=== PATIENT | male | born 1970 | race Caucasian/White ===

== ENCOUNTER 2017-12-30 02:15 | Emergency (ER) | payer MEDICAID, SELFPAY ==
--- NOTE | 2017-12-30 02:15 | DT_ITS ---
This patient was seen during an EMR downtime December 25, 2017 - January 01, 2018. This patient may have a combination of paper and electronic documentation or all paper documentation. All documentation is viewable within the e-chart portion of [employer] for each patient visit.
== END 2017-12-30 03:10 | disposition home or self-care (01) ==
LOC: ED 12-31 12:04
PROVIDERS: Emergency Provider Emergency Medicine
DX: H61.23 Impacted cerumen, bilateral (principal)
CPT/HCPCS: 99283

== ENCOUNTER 2018-12-02 18:18 | Emergency (ER) | payer MEDICAID, SELFPAY ==
[2018-12-02 18:19] VITALS: BP 126/68; PULSE 72; RESP 15; TEMP 36.9; O2SAT 100; BMI 21.2
--- NOTE | 2018-12-02 18:40 | EKG12_ITS ---
Test Reason : FATIGUE Blood Pressure : / mmHG Vent. Rate : 066 BPM Atrial Rate : 066 BPM P-R Int : 134 ms QRS Dur : 086 ms QT Int : 392 ms P-R-T Axes : 054 075 067 degrees QTc Int : 410 ms Normal sinus rhythm Normal ECG Confirmed by RUBI GARCÍA, THERESA ([id number]), market editor TERESO FORDE ([id number]) on 12/05/2018 1:43:56 PM Referred By: MALIA Confirmed By:THERESA VENEGAS MD
--- NOTE | 2018-12-02 18:42 | ED.DCSUM_ITS ---
- ER Visit Summary Date of Service: 12/02/18 Chief Complaint: Chest pain, fatigue History of Present Illness: The patient is a 48 M who complains of multiple symptoms including chest pain, fatigue and syncope. He states he had right- sided sharp chest pain that started yesterday. It is been continuous. Nothing makes it better or worse. He states he had syncope at a restaurant but he immediately came to and woke back up after it happened. He also planes of pain from the left ear down to the left elbow. He also has dizziness. He has tried nothing to help with this pain. He has been eating and drinking normally. He has no cardiac risk factors except for being a tobacco user. He tried to take 3 aspirin yesterday but it did not help his symptoms. Physical Examination: Vital signs reviewed. HEENT exam unremarkable. Heart is regular rate and rhythm without murmurs. Lungs are clear to auscultation. He has right sided parasternal chest tenderness to palpation. Abdomen is soft and nontender. Extremities reveal no edema. Peripheral pulses are equal. Skin exam normal. Neurologic exam normal. Test Results: EKG is sinus rhythm with rate of 66. No ST changes. Intervals normal. Laboratory studies normal as well. Chest x-ray normal Emergency Department Course and Treatment: Patient has musculoskeletal chest pain. It is reproducible. I see no evidence that would explain any of his fatigue. I will give him the name of the PCP that he needs to follow-up with for more testing. Treatment Plan: [] Disposition: Discharge Impression: Muscular skeletal chest pain, fatigue This note was generated with [employer] dictation software. It may contain incorrect words, spelling, and punctuation that were not noted in review of the chart prior to signing ED Disposition - Plan for ED Patient: Referrals: Care Physician,No Primary [Primary Care Provider] -
[2018-12-02] MEDS: Aspirin 81 MG TAB.CHEW 324 MG PO (19:07)
[2018-12-02 19:10] LABS: Absolute Lymphocyte Count 1.28 X10^3/ul (0.83-4.51); Basophil# 0.04 X10^3/uL; Basophil% 0.7 % (0-1); Eosinophil# 0.19 X10^3/uL; Eosinophils% 3.3 % (0-5); Hematocrit 42.8 % (40-54); Hemoglobin 14.5 g/dl (13.0-16.5); Lymphocyte # 1.28 X10^3/ul (4.0); Mean Corp Hgb Conc 33.9 g/gl (32-36); Mean Corpuscular Hgb 29.8 pg (27.0-32.0); Mean Corpuscular Volume 87.9 fL (80-94); Mean Platelet Vol. 9.4 fl (6.2-12.0); Monocyte# 0.36 X10^3/uL; Monocyte% 6.2 % (0-10); Neutrophil # 3.95 X10^3/uL (2.7-7.7); Neutrophil % 67.6 % (47-70); Platelet Count 276 K/mm3 (150-450); RBC Distribution Width CV 13.2 % (11.6-14.6); Red Blood Count 4.87 M/mm3 (4.6-6.2); White Blood Count 5.8 K/mm3 (4.4-11.0)
--- NOTE | 2018-12-02 19:10 | RAD_ITS ---
STUDY: X-RAY CHEST REASON FOR EXAM: Male, 48 years old. Fatigue. Chest pain. TECHNIQUE: Single AP portable view of the chest. COMPARISON: None. FINDINGS: The lungs are clear and expanded. There is no demonstrated pleural abnormality. Normal size heart. Normal mediastinum and pennie. Normal visualized pulmonary arteries. Normal visualized aortic arch and descending thoracic aorta. Normal visualized thoracic spine. Normal visualized ribs, clavicles, and shoulders. There is no demonstrated abnormality of the visualized soft tissue structures of the upper abdomen. RAD/Chest 1 View (Portable) IMPRESSION: Normal x-ray examination of the chest. Electronically Signed: Scar Benito MD at 19:24 EDT , Service support ,
[2018-12-02 19:11] LABS: POSITIVE COUNT NO; POSITIVE DIFFERENTIAL NO; POSITIVE MORPHOLOGY NO
[2018-12-02 19:39] LABS: Anion Gap 6 (5-15); BUN 25 mg/dL (7-18); BUN/Creat Ratio 26.8 RATIO (10-20); Calcium,Total 8.6 mg/dL (8.5-10.1); Chloride 106 mmol/L (98-107); Creatinine, Serum 0.93 mg/dL (0.70-1.30); EST Glomerular Filtration Rate 92 mL/min (>60); Est Glom Filt Rate - Afr Amer 112 mL/min (>60); Glucose 86 mg/dL (74-106); Potassium 3.9 mmol/L (3.5-5.1); Sodium Level 138 mmol/L (136-145)
--- NOTE | 2018-12-02 19:54 | ED.DEP ---
ED Disposition - Plan for ED Patient: Disposition: Home or Assisted Living Instructions: ED Weakness [facility] Referrals: Care Physician,No Primary [Primary Care Provider] - Rommel Watson MD [NON-STAFF] -
[2018-12-02 20:00] VITALS: BP 113/74; PULSE 68; RESP 15; O2SAT 98
== END 2018-12-02 20:01 | disposition home or self-care (01) ==
PROVIDERS: Emergency Provider Emergency Medicine
DX: R07.89 Other chest pain (principal); R53.83 Other fatigue; Z72.0 Tobacco use
CPT/HCPCS: 71045; 80048; 84484; 85025; 93005; 99285; A4216

== ENCOUNTER 2020-10-25 21:28 | Emergency (ER) | payer SELFPAY ==
[2020-10-25 21:30] VITALS: PULSE 122; RESP 28; TEMP 37.1; O2SAT 94; BMI 21.2
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
--- NOTE | 2020-10-25 21:33 | EKG12_ITS ---
Test Reason : Blood Pressure : / mmHG Vent. Rate : 106 BPM Atrial Rate : 106 BPM P-R Int : 130 ms QRS Dur : 086 ms QT Int : 346 ms P-R-T Axes : 063 081 030 degrees QTc Int : 459 ms Sinus tachycardia Otherwise normal ECG Confirmed by JUAN JOSE GARCÍA, HENRY ([id number]), senior editor SILVIANO BAKER ([id number]) on 10/28/2020 7:53:08 AM Referred By: NATALIE TORREZ Confirmed By:HENRY INGRAM MD
--- NOTE | 2020-10-25 21:33 | CT_ITS ---
History: altered mental status EXAMINATION: CT Head or Brain W/O Contrast Injection .Sagittal and coronal 2-D reformats TECHNIQUE: Multiple axial images were obtained of the head without intravenous contrast. A radiation dose optimization technique was used for this scan. IV Contrast dosage and agent: None 243 COMPARISON: None FINDINGS: BRAIN PARENCHYMA: No intra- or extra-axial hemorrhage. No evidence of acute infarct. No intracranial mass or mass effect. There is preservation of the villegas/white matter interface. Posterior fossa structures are unremarkable. CSF SPACES: Appropriate for age. No hydrocephalus. Basal cisterns are patent. CALVARIUM, SKULL BASE, PARANASAL SINUSES AND MASTOID AIR CELLS: Paranasal sinuses are clear. No discrete lytic or blastic abnormalities. ORBITS: Both globes, extraocular muscles, optic nerves and retrobulbar fat appear unremarkable. ASPECTS Score for Acute Strokes: 10 CT/Brain/Head without Contrast IMPRESSION: Negative Brain CT without contrast. Individualized dose optimization techniques were used for this CT. at 2258 Reported and signed by: Barron Riley MD Electronically Signed: Barron Riley MD at 22:57 EDT Tel , Service support ,
--- NOTE | 2020-10-25 21:34 | CT_ITS ---
History: altered mental status TECHNIQUE: Helically acquired images were obtained of the cervical spine without contrast. 2D reformatted images were reviewed. A radiation dose optimization technique was used for this scan. COMPARISON: None FINDINGS: # of images incl. paperwork: 420 Bilateral mastoid air cell disease is present. Soft tissue occludes both external auditory canals, likely representing cerumen Bony alignment is normal. Disc heights and vertebral body heights are normal. Facets are well aligned. Prevertebral and paraspinal soft tissues are normal. No bones within the cervical spine are fractured. Visualized portion of lung apices are normal. Impression no acute fracture or traumatic subluxation the cervical spine. Bilateral mastoid air cell disease. Soft tissue within both external auditory canals, occluding the external auditory canals, likely representing cerumen.: Normal cervical spine CT. Individualized dose optimization techniques were used for this CT. at 2300 Reported and signed by: Barron Riley MD Electronically Signed: Barron Riley MD at 22:58 EDT Tel , Service support , CT/Spine Cervical without Contras
[2020-10-25 21:45] LABS: Bedside Glucose 109 mg/dL (70-110)
[2020-10-25] MEDS: Ziprasidone IM 20 MG/ML VIAL IM (21:48)
[2020-10-25] MEDS: 0.9% Normal Saline 1,000 ML 1000 ML IV (22:17)
[2020-10-25 22:19] VITALS: O2SAT 88
[2020-10-25 22:21] VITALS: O2SAT 95
[2020-10-25 22:22] LABS: Absolute Lymphocyte Count 1.14 X10^3/uL (0.83-4.51); Absolute Neutrophil Count 4.7 X10^3/uL (2.0-7.7); Basophil# 0.05 X10^3/uL; Basophil% 0.8 % (0-1); Eosinophil# 0.12 X10^3/uL; Eosinophils% 1.9 % (0-5); Hematocrit 43.1 % (40-54); Hemoglobin 14.2 g/dL (13.0-16.5); Lymphocyte # 1.14 X10^3/ul (4.0); Lymphocyte % 18.2 % (19-41); Mean Corp Hgb Conc 32.9 g/dL (32-36); Mean Corpuscular Hgb 29.6 pg (27.0-32.0); Mean Platelet Vol. 9.3 fl (6.2-12.0); Monocyte# 0.31 X10^3/uL; Monocyte% 4.9 % (0-10); NRBC Flagged by Analyzer 0 % (0-5); Neutrophil # 4.65 X10^3/uL (2.7-7.7); Platelet Count 262 K/mm3 (150-450); RBC Distribution Width CV 13.2 % (11.6-14.6); RBC Distribution Width SD 43.1 fl (35.1-43.9); Red Blood Count 4.79 M/mm3 (4.6-6.2); White Blood Count 6.3 K/mm3 (4.4-11.0)
--- NOTE | 2020-10-25 22:29 | RAD_ITS ---
INDICATION: altered mental status EXAMINATION/TECHNIQUE: X-RAY - XR Chest 1 View COMPARISON: None. FINDINGS: The lungs are clear. The cardiomediastinal silhouette is unremarkable. No pleural effusion or pneumothorax. No acute osseous abnormalities. RAD/Chest 1 View (Portable) IMPRESSION: No acute radiographic abnormalities. Electronically Signed: Parviz Hodge MD at 22:58 EDT Tel , Service support ,
[2020-10-25 22:48] LABS: AST(SGOT) 28 U/L (15-37); Alanine Aminotransfer ALT/SGPT 32 U/L (16-61); Alkaline Phosphatase 82 U/L (45-117); Anion Gap 12 (5-15); BUN 17 mg/dL (7-18); BUN/Creat Ratio 17.1 RATIO (10-20); Calcium,Total 8.5 mg/dL (8.5-10.1); Chloride 110 mmol/L (98-107); Creatinine, Serum 0.99 mg/dL (0.70-1.30); EST Glomerular Filtration Rate 85 mL/min (>60); Est Glom Filt Rate - Afr Amer 103 mL/min (>60); Estimated Creatinine Clearance 69.49 ml/min; Globulin 3.9 g/dL (2.2-4.2); Glucose 90 mg/dL (74-106); Potassium 3.9 mmol/L (3.5-5.1); Protein, Total 7.9 g/dL (6.4-8.2); Sodium Level 144 mmol/L (136-145)
[2020-10-25 23:00] VITALS: BP 100/61; PULSE 94; RESP 14; O2SAT 95
--- NOTE | 2020-10-25 23:39 | ED.DEP ---
ED Disposition - Plan for ED Patient: Disposition: Home or Assisted Living Diagnosis: Alcohol intoxication Instructions: ED Alcohol Intoxication Referrals: Cassandra Phillips [NON-STAFF] - As Needed
[2020-10-26] VITALS (9 sets, daily range): BP systolic 88–124; BP diastolic 59–70; PULSE 67–98; RESP 13–16; O2SAT 96–99
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
== END 2020-10-26 09:11 | disposition home or self-care (01) ==
LOC: ED 10-26 04:14
PROVIDERS: Student in an Organized Health Care Education/Training Program; Emergency Provider Emergency Medicine
DX: F10.129 Alcohol abuse with intoxication, unspecified (principal); R45.1 Restlessness and agitation; Z87.891 Personal history of nicotine dependence
CPT/HCPCS: 70450; 71045; 72125; 80053; 82077; 82140; 82962; 84484; 85025; 93005; 96360; 96361; 96372; 99285; J7030; A4216; J3486

== ENCOUNTER 2021-01-29 23:37 | Emergency (ER) | payer SELFPAY ==
[2021-01-29 23:39] VITALS: BP 147/93; PULSE 98; RESP 22; TEMP 35.7; O2SAT 86; BMI 20.9
[2021-01-30] VITALS (8 sets, daily range): BP systolic 105–121; BP diastolic 68–80; PULSE 72–91; RESP 14–22; O2SAT 94–99
[2021-01-30] MEDS: LORazepam 2 MG/ML Syringe 1 MG IV
[2021-01-30] MEDS: Ondansetron 4 MG/2 ML Vial IV
[2021-01-30 00:19] LABS: Absolute Lymphocyte Count 2.26 X10^3/uL (0.83-4.51); Absolute Neutrophil Count 4.5 X10^3/uL (2.0-7.7); Basophil# 0.09 X10^3/uL; Basophil% 1.1 % (0-1); Eosinophil# 0.51 X10^3/uL; Eosinophils% 6.3 % (0-5); Hematocrit 42.5 % (40-54); Hemoglobin 13.8 g/dL (13.0-16.5); Lymphocyte # 2.26 X10^3/ul (0.83-4.51); Lymphocyte % 28.1 % (19-41); Mean Corp Hgb Conc 32.5 g/dL (32-36); Mean Corpuscular Hgb 29.9 pg (27.0-32.0); Mean Corpuscular Volume 92.2 fL (80-94); Mean Platelet Vol. 9.7 fl (6.2-12.0); Monocyte# 0.64 X10^3/uL; NRBC Flagged by Analyzer 0 % (0-5); Neutrophil # 4.49 X10^3/uL (2.7-7.7); Neutrophil % 55.9 % (47-70); Platelet Count 296 K/mm3 (150-450); RBC Distribution Width CV 12.7 % (11.6-14.6); RBC Distribution Width SD 43.1 fl (35.1-43.9); Red Blood Count 4.61 M/mm3 (4.6-6.2)
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
[2021-01-30 00:32] LABS: Anion Gap 9 (5-15); BUN 13 mg/dL (7-18); Calcium,Total 8.4 mg/dL (8.5-10.1); Chloride 110 mmol/L (98-107); EST Glomerular Filtration Rate 85 mL/min (>60); Est Glom Filt Rate - Afr Amer 102 mL/min (>60); Estimated Creatinine Clearance 74.53 ml/min; Glucose 93 mg/dL (74-106); Potassium 3.8 mmol/L (3.5-5.1); Sodium Level 143 mmol/L (136-145)
--- NOTE | 2021-01-30 00:50 | RAD_ITS ---
STUDY: X-RAY CHEST REASON FOR EXAM: Male, 50 years old. Altered mental status, vomiting TECHNIQUE: Single AP portable view of the chest. COMPARISON: 10/25/2020 FINDINGS: The lungs are clear and expanded. There is no demonstrated pleural abnormality. Normal size heart. Normal mediastinum and pennie. Normal visualized pulmonary arteries. Normal visualized aortic arch and descending thoracic aorta. Normal visualized thoracic spine. Normal visualized ribs, clavicles, and shoulders. There is no demonstrated abnormality of the visualized soft tissue structures of the upper abdomen. RAD/Chest 1 View (Portable) IMPRESSION: Normal x-ray examination of the chest. Electronically Signed: Alhaji Butcher DO at 1:27 EDT Tel , Service support ,
[2021-01-30 01:10] LABS: Amphetamine Urine VISTA NEGATIVE (<1000 ng/mL); Barbiturate Urine VISTA NEGATIVE (< 200 ng/mL); Benzodiazepine Urine VISTA NEGATIVE (< 200 ng/mL); Cocaine Urine VISTA NEGATIVE (< 300 ng/mL); Ecstacy Urine VISTA NEGATIVE (< 500 ng/mL); Methadone Urine VISTA NEGATIVE (< 300 ng/mL); PCP Urine VISTA NEGATIVE (< 25 ng/mL); THC Urine VISTA NEGATIVE (< 50 ng/mL); Vista UDS pH Range 5
== END 2021-01-30 08:15 | disposition home or self-care (01) ==
PROVIDERS: Emergency Provider Emergency Medicine
DX: F10.129 Alcohol abuse with intoxication, unspecified (principal); F17.210 Nicotine dependence, cigarettes, uncomplicated
CPT/HCPCS: 71045; 80048; 80307; 82077; 85025; 96374; 96375; 99285; P9612; A4216; J2405

== ENCOUNTER 2021-03-15 01:45 | Emergency (ER) | payer SELFPAY ==
[2021-03-15 01:55] VITALS: BP 133/94; PULSE 82; RESP 18; TEMP 36.3; O2SAT 97; BMI 21.0
[2021-03-15 02:02] VITALS: BP 133/94; PULSE 82; RESP 18; TEMP 36.3; O2SAT 97
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
== END 2021-03-15 02:41 | disposition home or self-care (01) ==
LOC: ED 02:18
PROVIDERS: Emergency Provider Emergency Medicine
DX: S01.85XA Open bite of other part of head, initial encounter (principal); F17.210 Nicotine dependence, cigarettes, uncomplicated; Y04.1XXA Assault by human bite, initial encounter
CPT/HCPCS: 99282

== ENCOUNTER 2021-05-30 20:53 | Emergency (ER) | payer SELFPAY ==
[2021-05-30 20:54] VITALS: BP 151/94; PULSE 108; RESP 18; TEMP 36.3; O2SAT 95; BMI 20.4
[2021-05-30 21:19] LABS: Absolute Lymphocyte Count 1.75 X10^3/uL (0.83-4.51); Absolute Neutrophil Count 6.2 X10^3/uL (2.0-7.7); Basophil# 0.06 X10^3/uL; Basophil% 0.7 % (0-1); Eosinophil# 0.07 X10^3/uL; Eosinophils% 0.8 % (0-5); Hematocrit 41.5 % (40-54); Hemoglobin 13.5 g/dL (13.0-16.5); Lymphocyte # 1.75 X10^3/ul (0.83-4.51); Lymphocyte % 20.2 % (19-41); Mean Corp Hgb Conc 32.5 g/dL (32-36); Mean Corpuscular Hgb 29.5 pg (27.0-32.0); Mean Corpuscular Volume 90.8 fL (80-94); Mean Platelet Vol. 9.6 fl (6.2-12.0); Monocyte# 0.61 X10^3/uL; NRBC Flagged by Analyzer 0 % (0-5); Neutrophil # 6.16 X10^3/uL (2.7-7.7); Neutrophil % 71.1 % (47-70); Platelet Count 272 K/mm3 (150-450); RBC Distribution Width CV 12.9 % (11.6-14.6); RBC Distribution Width SD 43.4 fl (35.1-43.9); Red Blood Count 4.57 M/mm3 (4.6-6.2); White Blood Count 8.7 K/mm3 (4.4-11.0)
[2021-05-30] MEDS: 0.9% Normal Saline 1,000 ML 1000 ML IV (21:24)
[2021-05-30 21:40] LABS: ALB/GLOB Ratio 1.1 RATIO (0.9-2.4); AST(SGOT) 28 U/L (15-37); Alanine Aminotransfer ALT/SGPT 21 U/L (16-61); Albumin, Serum 4.2 g/dL (3.2-5.0); Alkaline Phosphatase 83 U/L (45-117); Anion Gap 15 (5-15); BUN 17 mg/dL (7-18); Calcium,Total 8.4 mg/dL (8.5-10.1); Chloride 110 mmol/L (98-107); Creatinine, Serum 1.06 mg/dL (0.70-1.30); EST Glomerular Filtration Rate 79 mL/min (>60); Est Glom Filt Rate - Afr Amer 95 mL/min (>60); Estimated Creatinine Clearance 68.44 ml/min; Globulin 3.8 g/dL (2.2-4.2); Glucose 113 mg/dL (74-106); Potassium 3.2 mmol/L (3.5-5.1); Sodium Level 140 mmol/L (136-145)
--- NOTE | 2021-05-30 23:11 | EX.ED.DYSGE1 ---
HPI History of Present Illness Chief Complaint: Seizure Informant: EMS Onset/Context/Timing Onset: Today Context: Gradual Onset Timing: Continuous Quality: Combative Location: Generalized Worsened by: Unknown Relieved by: Unknown Narrative Narrative: Patient presents with agitation that began today. EMS states they were called for a seizure. When they arrived, they noted that the patient was having purposeful movements. Patient was combative with EMS. EMS administered 20 mg of Geodon. Patient is sleeping on my evaluation. EMS also noted that the patient had been drinking alcohol earlier today. PFSH PFSH Medical History unable to obtain unable to obtain Home Medications NK 12/02/18 [History Last Taken Unknown] Allergy/AdvReac Type Severity Reaction Status Date / Time No Known Allergies Allergy Verified 10/25/20 21:29 Surgical History unable to obtain unable to obtain Social History Smoking Status: Current every day smoker tobacco type: cigarettes alcohol intake: current ROS ROS ED Review of Systems ROS Unobtainable: due to mental status EXAM Physical Exam Const Vital Signs: 05/30/21 20:54 05/30/21 23:12 05/31/21 00:52 Temperature 97.4 F L Temperature Source Temporal Pulse Rate 108 H 85 81 Respiratory Rate 18 18 15 Blood Pressure 151/94 H 117/45 L 107/77 Blood Pressure Mean 113 69 87 Pulse Ox 95 98 96 Oxygen Delivery Method Room Air Room Air Room Air Positive unkempt General Appearance ED: unkempt and NAD HEENT Reports moist mucous membranes Neck supple and no JVD Chest Wall inspection of chest normal and palpation of chest normal Resp normal respiratory effort and clear to auscultation bilaterally Cardio regular rhythm Rate: tachycardic GI normal to inspection, nondistended, normoactive bowel sounds and non-tender Palpation: soft Neuro oriented x3, CN's II-XII intact bilaterally and no sensory deficits noted Sensorium / Orientation: alert Motor Exam: strength 5/5 throughout Psych mental status grossly normal Appearance: unkempt MDM MDM MDM Narrative Medical decision making narrative: Patient was given IV fluids. CBC was within normal limits. Comprehensive metabolic profile showed a CO2 of 15 and anion gap of 15. Serum alcohol level was elevated at 285 which would account for that. Patient became more awake and alert while here in the emergency department. Patient was able to call for a sober ride to come pick him up and take care of him at home. Patient was advised to stop drinking. Patient was given referral to 180. Patient understood and was agreeable with the plan. All questions were answered. Lab Data Attestation: I reviewed the patient's lab results. Labs: Laboratory Results - last 24 hr 05/30/21 05/30/21 05/30/21 21:00 21:00 21:00 WBC 8.7 RBC 4.57 L Hgb 13.5 Hct 41.5 MCV 90.8 MCH 29.5 MCHC 32.5 RDW Std Deviation 43.4 RDW Coeff of Sade 12.9 Plt Count 272 MPV 9.6 Immature Gran % (Auto) 0.200 Neut % (Auto) 71.1 H Lymph % (Auto) 20.2 Graham % (Auto) 7.0 Eos % (Auto) 0.8 Baso % (Auto) 0.7 Absolute Neuts (auto) 6.2 Absolute Lymphs (auto) 1.75 Nucleated RBC % 0 Sodium 140 Potassium 3.2 L Chloride 110 H Carbon Dioxide 15.0 L Anion Gap 15 BUN 17 Creatinine 1.06 Estim Creat Clear Calc 68.44 Est GFR (MDRD) Af Amer 95 Est GFR (MDRD) Non-Af 79 BUN/Creatinine Ratio 16.0 Glucose 113 H Calcium 8.4 L Total Bilirubin 0.30 AST 28 ALT 21 Alkaline Phosphatase 83 Total Protein 8.0 Albumin 4.2 Globulin 3.8 Albumin/Globulin Ratio 1.1 Ethyl Alcohol 285.0 Discharge Plan Triage Chief Complaint: Seizure ED Provider: Lauro Burnett Dx/Rx/DC Orders Clinical Impression: Alcohol intoxication Instructions: ED Alcohol Intoxication Prescriptions: No Action NK RF: 0 Primary Care Provider: Care Physician,No Primary Referrals: Care Physician,No Primary [Primary Care Provider] - [facility] [STAFF PHYSICIAN] - As soon as possible Disposition Disposition: Home, Self Care
[2021-05-30 23:12] VITALS: BP 117/45; PULSE 85; RESP 18; O2SAT 98
[2021-05-31 00:52] VITALS: BP 107/77; PULSE 81; RESP 15; O2SAT 96
== END 2021-05-31 01:52 | disposition home or self-care (01) ==
PROVIDERS: Emergency Provider Emergency Medicine
DX: F10.129 Alcohol abuse with intoxication, unspecified (principal); F17.210 Nicotine dependence, cigarettes, uncomplicated; Y90.8 Blood alcohol level of 240 mg/100 ml or more
CPT/HCPCS: 80053; 82077; 85025; 96360; 96361; 99285; J7030; A4216

== ENCOUNTER 2022-10-14 16:35 | Emergency (ER) | payer SELFPAY ==
[2022-10-14 16:36] VITALS: BP 135/91; PULSE 94; RESP 18; TEMP 36.9; O2SAT 99; BMI 19.3
--- NOTE | 2022-10-14 16:55 | ED.RN ---
SYDNEE Ann, at bedside to assess pt d/t complaints of arm tingling, chest pain, weakness, blurred vision earlier today.
[2022-10-14 16:56] VITALS: BP 137/90; PULSE 91; RESP 12; O2SAT 100
[2022-10-14 17:00] VITALS: BMI 19.2
--- NOTE | 2022-10-14 17:05 | ED.VIS.CHEST ---
HPI <SYDNEE Del Toro - Last Filed: 10/14/22 20:42> History of Present Illness Chief Complaint: Neuro S/Sx Narrative Narrative: Patient states around 4 PM he was at work at his [employer] job when he started having chest pain and bilateral arm pain. He felt lightheaded like he might fall and pass out. His left arm started to tingle. He started his shift around noon and felt fine and ate before going in. He denies history of health problems and takes no medications. He has not seen a doctor in about 2 years. No cardiac history. Denies smoking, alcohol, or drug use. He does report feeling intermittently hot and cold over the last week. PFSH <SYDNEE Del Toro - Last Filed: 10/14/22 20:42> [facility] Home Medications NK 12/02/18 [History Last Taken Unknown] Allergy/AdvReac Type Severity Reaction Status Date / Time No Known Allergies Allergy Verified 10/14/22 16:36 Social History Smoking Status: Former smoker alcohol intake: current ROS <SYDNEE Del Toro - Last Filed: 10/14/22 20:42> ROS ED ROS Narrative Constitutional: Negative for fever. Eyes: Negative for visual change. ENT: Negative for rhinorrhea. CVS: Positive for chest pain. Negative for palpitations, syncope. Respiratory: Negative for shortness of breath, cough. GI: Negative for abdominal pain, nausea, vomiting, diarrhea, constipation, melena, hematochezia. : Negative for dysuria. Neuro: Negative for headache. Skin: Negative for rash, abscess, or wound. EXAM <SYDNEE Del Toro - Last Filed: 10/14/22 20:42> Physical Exam Narrative Exam Narrative: CONST: Patient sitting in no acute distress. EYES: Normal inspection. ENT: Normal inspection, moist mucous membranes. NECK: Normal inspection. RESP: No respiratory distress, CTAB. CVS: Regular rate and rhythm, no murmur, no gallop. ABD: Soft and nontender, no guarding or rebound, nondistended. SKIN: Color normal, no rash, warm, dry, intact. EXTREMITIES: Normal appearance, no pedal edema. NEURO: Oriented x4. Face symmetric. 5/5 upper and lower extremity strength, no drift, normal [id number] and [id number] bilaterally. PSYCH: Normal affect. Const Vital Signs: 10/14/22 16:36 10/14/22 16:56 10/14/22 17:02 Temperature 98.5 F Temperature Source Temporal Pulse Rate 94 91 Respiratory Rate 18 12 Respiratory Effort Normal Non-Labored Respiratory Pattern Normal Blood Pressure 135/91 H 137/90 H Blood Pressure Mean 105 105 Pulse Ox 99 100 Oxygen Delivery Method Room Air Room Air 10/14/22 17:30 10/14/22 18:00 10/14/22 19:00 Temperature Temperature Source Pulse Rate 84 83 73 Respiratory Rate 14 16 13 Respiratory Effort Respiratory Pattern Blood Pressure 128/85 H 126/82 H 109/75 Blood Pressure Mean 99 96 86 Pulse Ox 99 100 99 Oxygen Delivery Method Room Air Room Air Room Air 10/14/22 19:44 Temperature Temperature Source Pulse Rate 75 Respiratory Rate 18 Respiratory Effort Respiratory Pattern Blood Pressure 117/73 Blood Pressure Mean Pulse Ox 100 Oxygen Delivery Method <Dr. Rivera Velázquez DO - Last Filed: 10/14/22 23:17> Physical Exam Const Vital Signs: 10/14/22 16:36 10/14/22 16:56 10/14/22 17:02 Temperature 98.5 F Temperature Source Temporal Pulse Rate 94 91 Respiratory Rate 18 12 Respiratory Effort Normal Non-Labored Respiratory Pattern Normal Blood Pressure 135/91 H 137/90 H Blood Pressure Mean 105 105 Pulse Ox 99 100 Oxygen Delivery Method Room Air Room Air 10/14/22 17:30 10/14/22 18:00 10/14/22 19:00 Temperature Temperature Source Pulse Rate 84 83 73 Respiratory Rate 14 16 13 Respiratory Effort Respiratory Pattern Blood Pressure 128/85 H 126/82 H 109/75 Blood Pressure Mean 99 96 86 Pulse Ox 99 100 99 Oxygen Delivery Method Room Air Room Air Room Air 10/14/22 19:44 Temperature Temperature Source Pulse Rate 75 Respiratory Rate 18 Respiratory Effort Respiratory Pattern Blood Pressure 117/73 Blood Pressure Mean Pulse Ox 100 Oxygen Delivery Method MDM <SYDNEE Del Toro - Last Filed: 10/14/22 20:42> [facility] MDM Narrative Medical decision making narrative: Patient had chest pressure and bilateral arm pain. [place] lightheaded. He appears uncomfortable but nontoxic. Vital signs are within normal limits. His exam overall is benign. Nurses were concerned for any neurological complaints since he seemed weak when walking in but he has no focal deficits. I do not think his symptoms sound consistent with a stroke. Cardiac work-up was started. EKG is sinus with no ischemic changes. CBC, BMP unremarkable. Troponin is less than 3. D-dimer was elevated at 0.93 so a CTA was obtained but this is negative for PE or acute process. Alcohol level was checked since he had a history of alcohol abuse but is negative. Patient states he is not using any alcohol or drugs currently. After 1 L of IV fluids he said he felt better and was ambulating in the hallway to the bathroom with no symptoms. I feel he can be discharged safely to follow-up with his doctor but should return if symptoms worsen. Differential: ACS, PE, pneumonia, electrolyte abnormality Lab Data Attestation: I reviewed the patient's lab results. Labs: Laboratory Results - last 24 hr 10/14/22 10/14/22 10/14/22 16:49 16:55 16:55 WBC 7.4 RBC 5.12 Hgb 13.6 Hct 43.1 MCV 84.2 MCH 26.6 L MCHC 31.6 L RDW Std Deviation 53.0 H RDW Coeff of Sade 17.1 H Plt Count 306 MPV 10.2 Immature Gran % (Auto) 0.300 Neut % (Auto) 75.4 H Lymph % (Auto) 14.7 L Wilkinson % (Auto) 7.3 Eos % (Auto) 1.5 Baso % (Auto) 0.8 Absolute Neuts (auto) 5.6 Absolute Lymphs (auto) 1.08 Nucleated RBC % 0 D-Dimer Quant (PE/DVT) 0.93 H* Sodium Potassium Chloride Carbon Dioxide Anion Gap BUN Creatinine Estim Creat Clear Calc Est GFR (MDRD) Af Amer Est GFR (MDRD) Non-Af BUN/Creatinine Ratio Glucose Calcium Troponin I High Sens Urine Color Urine Clarity Urine pH Ur Specific [place] Urine Protein Urine Glucose (UA) Urine Ketones Urine Occult Blood Urine Nitrite Urine Bilirubin Urine Urobilinogen Ur Leukocyte Esterase Urine RBC Urine WBC Ur Squamous Epith Cells Urine Bacteria Urine Mucus Ethyl Alcohol POC Glucose 92 10/14/22 10/14/22 10/14/22 16:55 18:00 18:40 WBC RBC Hgb Hct MCV MCH MCHC RDW Std Deviation RDW Coeff of Sdae Plt Count MPV Immature Gran % (Auto) Neut % (Auto) Lymph % (Auto) Wilkinson % (Auto) Eos % (Auto) Baso % (Auto) Absolute Neuts (auto) Absolute Lymphs (auto) Nucleated RBC % D-Dimer Quant (PE/DVT) Sodium 133 L Potassium 4.0 Chloride 102 Carbon Dioxide 24.0 Anion Gap 7 BUN 22 H Creatinine 1.19 Estim Creat Clear Calc 56.83 Est GFR (MDRD) Af Amer 83 Est GFR (MDRD) Non-Af 69 BUN/Creatinine Ratio 18.5 Glucose 100 Calcium 9.3 Troponin I High Sens < 3 L Urine Color Yellow Urine Clarity Clear Urine pH 6.0 Ur Specific [place] 1.010 Urine Protein Negative Urine Glucose (UA) Normal Urine Ketones Negative Urine Occult Blood Negative Urine Nitrite Negative Urine Bilirubin Negative Urine Urobilinogen Normal Ur Leukocyte Esterase 100 H Urine RBC 0 SEEN Urine WBC 0-5 SEEN Ur Squamous Epith Cells 0 SEEN Urine Bacteria 0 SEEN Urine Mucus 0 SEEN Ethyl Alcohol < 3.0 POC Glucose Radiography Diagnostic Testing: Clinical Impression(s) from Imaging Studies Chest X-Ray 10/14/22 17:20 IMPRESSION: Normal x-ray examination of the chest. Electronically Signed: Jimmy Thomson MD at 17:35 EDT , Chest CTA 10/14/22 18:22 IMPRESSION: No acute abnormalities, without a demonstrated pulmonary embolism or arterial dissection. Electronically Signed: Jimmy Thomson MD at 18:45 EDT , ED attending interpretation of chest x-ray shows normal heart size, no acute infiltrate. EKG Initial EKG: Attestation: I personally reviewed and interpreted this EKG as follows: Interpretation: Sinus Rhythm and No Acute Injury Pattern Comments: Normal sinus rhythm at 87 bpm, no ectopy or acute ischemic changes noted Prior EKG tracings: available for review Prior: Unchanged <Dr. Rivera Velázquez, DO - Last Filed: 10/14/22 23:17> [facility] MDM Narrative Medical decision making narrative: Patient had chest pressure and bilateral arm pain. [place] lightheaded. He appears uncomfortable but nontoxic. Vital signs are within normal limits. His exam overall is benign. Nurses were concerned for any neurological complaints since he seemed weak when walking in but he has no focal deficits. I do not think his symptoms sound consistent with a stroke. Cardiac work-up was started. EKG is sinus with no ischemic changes. CBC, BMP unremarkable. Troponin is less than 3. D-dimer was elevated at 0.93 so a CTA was obtained but this is negative for PE or acute process. Alcohol level was checked since he had a history of alcohol abuse but is negative. Patient states he is not using any alcohol or drugs currently. After 1 L of IV fluids he said he felt better and was ambulating in the hallway to the bathroom with no symptoms. I feel he can be discharged safely to follow-up with his doctor but should return if symptoms worsen. Differential: ACS, PE, pneumonia, electrolyte abnormality This patient was seen with a PA/INSURANCE CLAIMS ANALYST Individually assessed they patient including history and physical. I have reviewed everything on the chart that is available and agree with the documentation provided by the PA/INSURANCE CLAIMS ANALYST including discussion about the assessment, treatment plan, discussion, and return precautions. Patient presenting with lightheadedness, chest pressure, bilateral arm pain. Well-appearing nontoxic with normal exam. Patient presents he does not have any neurologic deficits or lateralizing signs or symptoms. Chest pain work-up obtained and is ultimately normal. Chest x-ray my interpretation showed no acute cardiopulmonary process. Radiology interpretation agrees. EKG sinus rhythm with a rate of 87 bpm outside of ischemic change or dysrhythmia. D-dimer was elevated so had a CT of the chest was also negative. Patient was given IV fluids is ambulating without difficulty. At this point he had a negative work-up and actually consistently discharged home. Return precautions were discussed Lab Data Labs: Laboratory Results - last 24 hr 10/14/22 10/14/22 10/14/22 16:49 16:55 16:55 WBC 7.4 RBC 5.12 Hgb 13.6 Hct 43.1 MCV 84.2 MCH 26.6 L MCHC 31.6 L RDW Std Deviation 53.0 H RDW Coeff of Sade 17.1 H Plt Count 306 MPV 10.2 Immature Gran % (Auto) 0.300 Neut % (Auto) 75.4 H Lymph % (Auto) 14.7 L Wilkinson % (Auto) 7.3 Eos % (Auto) 1.5 Baso % (Auto) 0.8 Absolute Neuts (auto) 5.6 Absolute Lymphs (auto) 1.08 Nucleated RBC % 0 D-Dimer Quant (PE/DVT) 0.93 H* Sodium Potassium Chloride Carbon Dioxide Anion Gap BUN Creatinine Estim Creat Clear Calc Est GFR (MDRD) Af Amer Est GFR (MDRD) Non-Af BUN/Creatinine Ratio Glucose Calcium Troponin I High Sens Urine Color Urine Clarity Urine pH Ur Specific [place] Urine Protein Urine Glucose (UA) Urine Ketones Urine Occult Blood Urine Nitrite Urine Bilirubin Urine Urobilinogen Ur Leukocyte Esterase Urine RBC Urine WBC Ur Squamous Epith Cells Urine Bacteria Urine Mucus Ethyl Alcohol POC Glucose 92 10/14/22 10/14/22 10/14/22 16:55 18:00 18:40 WBC RBC Hgb Hct MCV MCH MCHC RDW Std Deviation RDW Coeff of Sade Plt Count MPV Immature Gran % (Auto) Neut % (Auto) Lymph % (Auto) Wilkinson % (Auto) Eos % (Auto) Baso % (Auto) Absolute Neuts (auto) Absolute Lymphs (auto) Nucleated RBC % D-Dimer Quant (PE/DVT) Sodium 133 L Potassium 4.0 Chloride 102 Carbon Dioxide 24.0 Anion Gap 7 BUN 22 H Creatinine 1.19 Estim Creat Clear Calc 56.83 Est GFR (MDRD) Af Amer 83 Est GFR (MDRD) Non-Af 69 BUN/Creatinine Ratio 18.5 Glucose 100 Calcium 9.3 Troponin I High Sens < 3 L Urine Color Yellow Urine Clarity Clear Urine pH 6.0 Ur Specific [place] 1.010 Urine Protein Negative Urine Glucose (UA) Normal Urine Ketones Negative Urine Occult Blood Negative Urine Nitrite Negative Urine Bilirubin Negative Urine Urobilinogen Normal Ur Leukocyte Esterase 100 H Urine RBC 0 SEEN Urine WBC 0-5 SEEN Ur Squamous Epith Cells 0 SEEN Urine Bacteria 0 SEEN Urine Mucus 0 SEEN Ethyl Alcohol < 3.0 POC Glucose Radiography Diagnostic Testing: Clinical Impression(s) from Imaging Studies Chest X-Ray 10/14/22 17:20 IMPRESSION: Normal x-ray examination of the chest. Electronically Signed: Jimmy Thomson MD at 17:35 EDT Reading Location ID and State: [facility] / [place] , Service support , Chest CTA 10/14/22 18:22 IMPRESSION: No acute abnormalities, without a demonstrated pulmonary embolism or arterial dissection. Electronically Signed: Jimmy Thomson MD at 18:45 EDT Reading Location ID and State: [address] [place] [address] , Service support , Discharge Plan Triage Chief Complaint: Neuro S/Sx Other Complaint: Chest Pain Numb/Ting ED Midlevel Provider: Sara Silva ED Provider: Rivera Velázquez Dx/Rx/DC Orders Clinical Impression: Chest pain Instructions: Chest Pain [facility] Ch Prescriptions: No Action NK Primary Care Provider: Care Physician,No Primary Referrals: Cassandra Phillips [Non-Staff] - Care Physician,No Primary [Primary Care Provider] - Activity Restrictions/Additional Instructions: Please call the clinic for follow-up with your primary care doctor. If you develop new or worsening symptoms come back to the ER. Disposition Disposition: Home, Self Care Discharge Date/Time: 10/14/22 19:51
--- NOTE | 2022-10-14 17:20 | EKG12_ITS ---
Test Reason : WEAKNESS/CP Blood Pressure : / mmHG Vent. Rate : 087 BPM Atrial Rate : 087 BPM P-R Int : 112 ms QRS Dur : 090 ms QT Int : 356 ms P-R-T Axes : 056 081 058 degrees QTc Int : 428 ms Normal sinus rhythm Minimal voltage criteria for LVH, may be normal variant ( Sokolow-Bassett ) Borderline ECG Confirmed by JUAN JOSE GARCÍA, HENRY ([id number]), script editor TERESO FORDE ([id number]) on 10/17/2022 2:16:55 PM Referred By: NATALIE/RICH Confirmed By:HENRY INGRAM MD
--- NOTE | 2022-10-14 17:20 | RAD_ITS ---
STUDY: X-RAY CHEST REASON FOR EXAM: Male, 51 years old. chest pain TECHNIQUE: AP portable COMPARISON: None. FINDINGS: The lungs are clear and expanded. There is no demonstrated pleural abnormality. Normal size heart. Normal mediastinum and pennie. Normal visualized pulmonary arteries. Normal visualized aortic arch and descending thoracic aorta. Normal visualized thoracic spine. Normal visualized ribs, clavicles, and shoulders. There is no demonstrated abnormality of the visualized soft tissue structures of the upper abdomen. RAD/Chest 1 View (Portable) IMPRESSION: Normal x-ray examination of the chest. Electronically Signed: Jimmy Thomson MD at 17:35 EDT ,
[2022-10-14] MEDS: 0.9% Normal Saline 1,000 ML 999 ML IV (17:29)
[2022-10-14 17:30] VITALS: BP 128/85; PULSE 84; RESP 14; O2SAT 99
[2022-10-14 17:30] LABS: Bedside Glucose 92 mg/dL (74-106)
[2022-10-14 17:53] LABS: Absolute Lymphocyte Count 1.08 X10^3/uL (0.83-4.51); Absolute Neutrophil Count 5.6 X10^3/uL (2.0-7.7); Basophil# 0.06 X10^3/uL; Basophil% 0.8 % (0-1); Eosinophil# 0.11 X10^3/uL; Eosinophils% 1.5 % (0-5); Hematocrit 43.1 % (40-54); Hemoglobin 13.6 g/dL (13.0-16.5); Lymphocyte # 1.08 X10^3/ul (0.83-4.51); Lymphocyte % 14.7 % (19-41); Mean Corp Hgb Conc 31.6 g/dL (32-36); Mean Corpuscular Hgb 26.6 pg (27.0-32.0); Mean Corpuscular Volume 84.2 fL (80-94); Mean Platelet Vol. 10.2 fl (6.2-12.0); Monocyte# 0.54 X10^3/uL; Monocyte% 7.3 % (0-10); NRBC Flagged by Analyzer 0 % (0-5); Neutrophil # 5.55 X10^3/uL (2.7-7.7); Neutrophil % 75.4 % (47-70); Platelet Count 306 K/mm3 (150-450); RBC Distribution Width CV 17.1 % (11.6-14.6); Red Blood Count 5.12 M/mm3 (4.6-6.2); White Blood Count 7.4 K/mm3 (4.4-11.0)
[2022-10-14 18:00] VITALS: BP 126/82; PULSE 83; RESP 16; O2SAT 100
[2022-10-14 18:10] LABS: D-Dimer Quantitative (DVT/PE) 0.93 FEU/ug/m (0.27-0.49)
[2022-10-14 18:15] LABS: Anion Gap 7 (5-15); BUN 22 mg/dL (7-18); BUN/Creat Ratio 18.5 RATIO (10-20); Calcium,Total 9.3 mg/dL (8.5-10.1); Chloride 102 mmol/L (98-107); Creatinine, Serum 1.19 mg/dL (0.70-1.30); EST Glomerular Filtration Rate 69 mL/min (>60); Est Glom Filt Rate - Afr Amer 83 mL/min (>60); Estimated Creatinine Clearance 56.83 ml/min; Glucose 100 mg/dL (74-106); Sodium Level 133 mmol/L (136-145); Troponin-I HS < 3 pg/mL (3.0-78.0)
--- NOTE | 2022-10-14 18:22 | CT_ITS ---
STUDY: CTA CHEST REASON FOR EXAM: Male, 51 years old. chest pain RADIATION DOSAGE (If Supplied By Facility): CTDIvol = ( 9.0 ) mGy, DLP = ( 294.78 ) mGycm TECHNIQUE: The examination was performed with the intravenous administration of IV 100mL Isovue-370. Post-processing of the angiographic images was performed, with multiplanar reformation and 3D reconstruction. Individualized dose optimization techniques were used for this CT. COMPARISON: None. FINDINGS: Normal enhancement of the main pulmonary artery and right and left pulmonary arteries. Normal enhancement of the bilateral peripheral pulmonary arteries. There is no demonstrated pulmonary embolism. Normal thoracic aorta and visualized great vessels. There is no demonstrated aortic dissection. Normal heart and pericardium. Normal mediastinum. Normal hilar regions. Normal visualized trachea and bronchi. The lungs are well expanded. Normal pulmonary parenchyma. Normal pleura. Normal chest wall structures. Dorsal spine demonstrates mild degenerative change.. Normal visualized upper abdomen. CT/CTA Chest W/WO Contrast IMPRESSION: No acute abnormalities, without a demonstrated pulmonary embolism or arterial dissection. Electronically Signed: Jimmy Thomson MD at 18:45 EDT ,
[2022-10-14 18:39] LABS: Alcohol, Blood (Medical)-Serum < 3.0 mg/dL
[2022-10-14 18:56] LABS: Bacteria 0 SEEN /hpf (None Seen); Mucous, Urine 0 SEEN /hpf (<or=2+); Red Blood Cells-Urine 0 SEEN /hpf (0-5); Squamous Epithelial Cells - UA 0 SEEN /hpf (0-5)
[2022-10-14 18:58] LABS: Color, Urine Yellow (Yellow); Glucose, Dipstick Normal (Normal); Ketone-Dipstick Negative (Negative); Leukocyte Esterase-Dipstick 100 /ul (Negative); Nitrite-Dipstick Negative (Negative); Occult Blood-Urine Negative /ul (Negative); Protein-Dipstick Negative (Negative); Urine Bilirubin Dipstick Negative (Negative); Urine Clarity Clear (Clear); Urine Urobilinogen Normal (Normal)
[2022-10-14 19:00] VITALS: BP 109/75; PULSE 73; RESP 13; O2SAT 99
[2022-10-14 19:24] LABS: White Blood Cells 0-5 SEEN /hpf (0-5)
--- NOTE | 2022-10-14 19:32 | ED.RN ---
Pt ambulatory to bathroom without assistance. Received 1 liter of fluid, per Dr. Velázquez no orthostatic vitals needed mat this time.
[2022-10-14 19:44] VITALS: BP 117/73; PULSE 75; RESP 18; O2SAT 100
== END 2022-10-14 19:51 | disposition home or self-care (01) ==
PROVIDERS: Physician Assistant; Emergency Provider Student in an Organized Health Care Education/Training Program; Visit Provider Student in an Organized Health Care Education/Training Program
DX: R07.9 Chest pain, unspecified (principal); M79.602 Pain in left arm; M79.601 Pain in right arm; Z87.891 Personal history of nicotine dependence
CPT/HCPCS: 71045; 71275; 80048; 81001; 82077; 82962; 84484; 85025; 85379; 93005; 96360; 96361; 99285; J7030; Q9967; A4216

== ENCOUNTER 2022-12-23 20:15 | Emergency (ER) | payer SELFPAY ==
[2022-12-23 20:16] VITALS: BP 113/68; PULSE 80; RESP 16; TEMP 36.9; O2SAT 98; BMI 19.5
--- NOTE | 2022-12-23 20:41 | RAD_ITS ---
INDICATION: pain EXAMINATION/TECHNIQUE: X-RAY - LEFT XR Foot Min 3 Views 3 VIEWS COMPARISON: None. FINDINGS: SOFT TISSUES: No soft tissue swelling or gas. No radiopaque foreign body. BONES/JOINTS: No acute fracture. Joint spaces anatomically aligned. No sclerotic or destructive changes observed. RAD/Foot min 3 Views IMPRESSION: Unremarkable study. Electronically Signed: Jonny Byrne MD at 21:05 EDT ,
--- NOTE | 2022-12-23 22:26 | EX.ED.DYSGE1 ---
HPI History of Present Illness Chief Complaint: Lower Extremity Injury Informant: patient Narrative Narrative: Patient is a 52-year-old male who states 1 to 2 weeks ago he rolled his left ankle. He states he did not think much of it at the time but he works on his feet for multiple hours a day. He denies any repeat injury but states that this evening when he went to stand up he had increased pain to the point where he cannot bear weight. He states when he is off his feet there is no pain but as soon as there is palpation or weightbearing there is increased pain and it makes it difficult to ambulate and therefore with this change he presents for evaluation [facility] Home Medications oxycodone-acetaminophen 5 mg-325 mg tablet (Percocet) 1 tab PO Q6H PRN pain 3 days #12 tabs 12/23/22 [Rx Last Taken Unknown] Allergy/AdvReac Type Severity Reaction Status Date / Time No Known Allergies Allergy Verified 12/23/22 20:16 Social History Smoking Status: Never smoker alcohol intake: current ROS ROS ED Constitutional Constitutional ED: Denies chills or fever(s) ENT ENT ED: Denies sore throat Cardiovascular Cardiovascular: Denies chest pain Respiratory/Chest Respiratory/Chest: Denies cough or dyspnea Gastrointestinal Gastrointestinal: Denies abdominal pain, diarrhea, nausea or vomiting Genitourinary Genitourinary ED: Denies dysuria Musculoskeletal Musculoskeletal: Reports other Details: Positive left ankle/foot pain Integumentary Denies Abrasions or rash Neurologic Neurologic: Denies headache(s) or paresthesias Hematologic/Lymphatic Hematologic/Lymphatic: Denies easy bleeding or easy bruising EXAM Physical Exam Const Vital Signs: 12/23/22 20:16 12/23/22 22:50 Temperature 98.4 F Temperature Source Temporal Pulse Rate 80 81 Respiratory Rate 16 16 Blood Pressure 113/68 110/70 Blood Pressure Mean 83 Pulse Ox 98 98 Oxygen Delivery Method Room Air Positive well nourished and well developed General Appearance ED: well developed Eyes PERRL and EOMs intact bilaterally Neck supple Resp normal respiratory effort and clear to auscultation bilaterally Cardio regular rate and regular rhythm Extremity Extremity Narrative: Left lower extremity is neurovascular intact. No obvious bony deformity or joint effusion. Achilles tendon is intact and ankle ligaments are stable. There is pain with palpation over top the distal third interosseous membrane. No overlying erythema or warmth no abrasions or ecchymosis noted. Neuro oriented x3, CN's II-XII intact bilaterally and no sensory deficits noted Sensorium / Orientation: alert Psych mental status grossly normal Skin no rashes or lesions noted MDM MDM MDM Narrative Medical decision making narrative: Patient presented to the ER with foot/ankle pain that was present with palpation and ambulation. He states he rolled his ankle 1 to 2 weeks ago but there is been no repeat injury. He has no history or exam findings concerning for cellulitis abscess or gout. Further differential diagnosis includes 5th metatarsal fracture versus high ankle sprain. As the x-ray does not show signs of fracture I do believe the patient has a high ankle sprain with his history of rolling his ankle and location of pain that is worse with ambulation. At this time he is closed and neurovascular intact and there is no need for emergent orthopedic or podiatry referral. He can be given symptomatic care with a walking boot and is otherwise safe for discharge History & Record Review Discussion w/independent historian: Patient Radiography Diagnostic Testing: Clinical Impression(s) from Imaging Studies Foot X-Ray 12/23/22 20:41 IMPRESSION: Unremarkable study. Electronically Signed: Jonny Byrne MD at 21:05 EDT , Left foot x-ray as interpreted by the emergency medicine physician reveals no acute fracture dislocation or foreign body Discharge Plan Triage Chief Complaint: Lower Extremity Injury ED Provider: Isra Carlson Dx/Rx/DC Orders Clinical Impression: High ankle sprain of left lower extremity Instructions: Treating Ankle Sprains, ED Ankle Sprain (Adult) Prescriptions: New oxycodone-acetaminophen [Percocet] 5-325 mg tablet 1 tab PO Q6H PRN (Reason: pain) 3 Days Qty: 12 0RF Primary Care Provider: Care Physician,No Primary Referrals: Jimmy Sandoval DPM [Med Staff - Active Staff] - Care Physician,No Primary [Primary Care Provider] - Activity Restrictions/Additional Instructions: Please wear your walking boot for stabilization for the next 3 to 4 weeks as your exam indicates you have a high ankle sprain and this will take time to heal. Follow-up with podiatry for repeat evaluation and return to the ER should you have any further concerns Disposition Disposition: Home, Self Care Discharge Date/Time: 12/23/22 22:59
[2022-12-23] MEDS: oxyCODONE 5 MG Tablet 10 MG PO (22:38)
[2022-12-23 22:50] VITALS: BP 110/70; PULSE 81; RESP 16; O2SAT 98
== END 2022-12-23 22:59 | disposition home or self-care (01) ==
PROVIDERS: Emergency Provider Emergency Medicine; Visit Provider Emergency Medicine
DX: S93.492A Sprain of other ligament of left ankle, initial encounter (principal); X50.1XXA Overexertion from prolonged static or awkward postures, initial encounter
CPT/HCPCS: 73630; 99283

== ENCOUNTER 2023-08-28 22:59 | Emergency (ER) | payer OTHER, SELFPAY ==
[2023-08-28 23:00] VITALS: BP 117/83; PULSE 77; RESP 18; TEMP 37; O2SAT 100; BMI 22.7
--- OUTSIDE RECORDS SUMMARY | 2023-08-29 00:03 | XMS RPT_ITS | CCD ---
Author Name Unknown Address [address] [place] [address] Organization [facility] Results Test Name Value Interpretation Reference Range Facil ity Encounters Encounter Date Encounter Type Care Provider Facility Start: 08-13-2018 End: 08-15-2018 Patient encounter procedure [facility] Summary Purpose Family History No Family History Records Found Advance Directives No Advanced Directives Records Found Additional Source Comments (unrecognized sect ion and content) No Status Records Found INFORMATION SOURCE (unrecogn ized section and content) FOR RECORDS PERTAINING TO PATIENTS WHO ARE OR HAVE BEEN ENROLLED IN A CHEMICAL DEPENDENCY/SUBSTANCEABUSE PROGRAM, SOME INFORMATION MAY BE OMITTED. This clinical summary was aggregated from multiple sources. Caution should be exercised in using it in the provision of clinical care. This summary normalizes information from multiple sources, and as a consequence, information in this document may materially change the coding, format and clinical context of patient data. In addition, data may be omitted in some cases. CLINICAL DECISIONS SHOULD BE BASED ON THE PRIMARY CLINICAL RECORDS. [employer] [facility]. provides no warranty or guarantee of the accuracy or completeness of information in this document.
--- NOTE | 2023-08-29 00:09 | ED.VIS.DENTA ---
HPI History of Present Illness Chief Complaint: Dental Informant: patient Narrative Narrative: Patient complains of right lower jaw dental pain. Sounds like he has had some discomfort for a few days. He has an appointment with a dentist on . But it was getting worse today. No nausea vomiting. No fevers. No swelling. He is on no medications for any chronic medical problems. He has no allergies. Nothing really makes this better or worse. PFSH PFSH Medical History no medical history Home Medications oxycodone-acetaminophen 5 mg-325 mg tablet (Percocet) 1 tab PO Q6H PRN pain 3 days #12 tabs 12/23/22 [Rx Last Taken Unknown] naproxen 500 mg tablet (Naprosyn) 500 mg PO BID PRN pain #20 tabs 08/29/23 [Rx Last Taken Unknown] penicillin V potassium 500 mg tablet 500 mg PO 4X/DAY #40 tabs 08/29/23 [Rx Last Taken Unknown] Allergy/AdvReac Type Severity Reaction Status Date / Time No Known Allergies Allergy Verified 08/28/23 23:00 Social History Smoking Status: Never smoker alcohol intake: current ROS ROS ED Constitutional Constitutional ED: Denies chills, fever(s), subjective or sweats Eyes Eyes: Denies blurry vision or change in vision ENT ENT ED: Reports other Details: Right lower dental pain. See HPI. Cardiovascular Cardiovascular: Denies chest pain Gastrointestinal Gastrointestinal: Denies nausea or vomiting Musculoskeletal Musculoskeletal: Denies neck pain Integumentary Denies rash Neurologic Neurologic: Denies headache(s), paresthesias or weakness Hematologic/Lymphatic Hematologic/Lymphatic: Denies easy bleeding, easy bruising or lymphadenopathy Allergic/Immunologic Allergic/Immunologic ED: Denies urticaria EXAM Physical Exam Narrative Exam Narrative: General: Patient awake alert sitting comfortably on bed. No acute distress. Nontoxic. HEENT: No facial swelling. He does have poor dentition with many teeth missing. Lower jaw on the right has premolar molar present. Both of these are tender but mostly the molar. There is some erythema around the gums. Floor the mouth is soft. Tongue is normal motion. Voice is normal. Handling secretions is normal. No sign of Jerel's. There is no tenderness of the tragus. Canals are normal. Neck shows no lymphadenopathy. No stridor. Cardiorespiratory shows easy unlabored breathing with normal pulse and normal saturation 100% on room air showing no hypoxia. Skin shows no external rash or vesicles. Const Vital Signs: 08/28/23 23:00 Temperature 98.6 F Temperature Source Temporal Pulse Rate 77 Respiratory Rate 18 Blood Pressure 117/83 H Blood Pressure Mean 94 Pulse Ox 100 Oxygen Delivery Method Room Air MDM MDM MDM Narrative Medical decision making narrative: Patient will be treated with nonsteroidals antibiotics. He has follow-up arranged. I will still give him a dental resource sheet in case he needs this. Discharge Plan Triage Chief Complaint: Dental ED Provider: Dustin Gilliam Dx/Rx/DC Orders Clinical Impression: Dental abscess Instructions: ED Dental Abscess Prescriptions: New penicillin V potassium 500 mg tablet 500 mg PO 4X/DAY Qty: 40 0RF naproxen [Naprosyn] 500 mg tablet 500 mg PO BID PRN (Reason: pain) Qty: 20 0RF No Action oxycodone-acetaminophen [Percocet] 5-325 mg tablet 1 tab PO Q6H PRN (Reason: pain) 3 Days Qty: 12 0RF Primary Care Provider: Care Physician,No Primary Referrals: Care Physician,No Primary [Primary Care Provider] - Activity Restrictions/Additional Instructions: See your dentist as scheduled on . Disposition Disposition: Home, Self Care
[2023-08-29] MEDS: Penicillin Vk 250 MG Tablet 500 MG PO (00:39)
[2023-08-29] MEDS: Naproxen 500 MG Tablet PO (00:40)
== END 2023-08-29 00:42 | disposition home or self-care (01) ==
PROVIDERS: Emergency Provider Emergency Medicine; Visit Provider Emergency Medicine
DX: K04.7 Periapical abscess without sinus (principal)
CPT/HCPCS: 99283

== ENCOUNTER 2023-09-12 22:36 | Emergency (ER) | payer OTHER, SELFPAY ==
[2023-09-12 22:37] VITALS: BP 143/83; PULSE 87; RESP 14; TEMP 37.4; O2SAT 100; BMI 22.7
--- OUTSIDE RECORDS SUMMARY | 2023-09-12 23:13 | XMS RPT_ITS | CCD ---
Author Name Unknown Address [email or web address] [place] [address] Organization [facility] Results Test Name Value Interpretation Reference Range Facil ity Encounters Encounter Date Encounter Type Care Provider Facility Start: 08-13-2018 End: 08-15-2018 Patient encounter procedure [facility] Summary Purpose Family History No Family History [...] BE BASED ON THE PRIMARY CLINICAL RECORDS. [employer] [facility]. provides no warranty or guarantee of the accuracy or completeness of information in this document.
[2023-09-12] MEDS: Lidocaine 2% /Epi 1:100 (20ml) 20 ML VIAL INFILT (23:21)
[2023-09-12] MEDS: Bupivacaine 0.5%/Epi 1.8 ML Syringe 1.80000000000000004 ML INFILT (23:36)
--- NOTE | 2023-09-12 23:38 | EDS_ITS ---
HPI History of Present Illness Chief Complaint: Dental Informant: patient Narrative Narrative: Patient is a 52-year-old male who reports no significant past medical history. He does state that he has bad teeth . He denies any recent trauma but states he developed increasing pain to his right lower jaw and was seen in the ER recently and placed on antibiotics. He reports he was not having much symptom improvement so he followed up with his dentist who reportedly did an x-ray and showed an area of infection around his right molar . He states the dentist wants him to be on antibiotics for a while but did discuss potential need for removal of the tooth. He denies any difficulty breathing or swallowing or fevers or chills but states that the pain has been persistent despite taking the prescribed medication and therefore he comes in for evaluation [facility] Medical History no medical history Home Medications oxycodone-acetaminophen 5 mg-325 mg tablet (Percocet) 1 tab PO Q6H PRN pain 3 days #12 tabs 12/23/22 [Rx Last Taken Unknown] naproxen 500 mg tablet (Naprosyn) 500 mg PO BID PRN pain #20 tabs 08/29/23 [Rx Last Taken Unknown] penicillin V potassium 500 mg tablet 500 mg PO 4X/DAY #40 tabs 08/29/23 [Rx Last Taken Unknown] oxycodone-acetaminophen 5 mg-325 mg tablet (Percocet) 1 tab PO Q6H PRN pain 3 days #12 tabs 09/12/23 [Rx Last Taken Unknown] Allergy/AdvReac Type Severity Reaction Status Date / Time No Known Allergies Allergy Verified 09/12/23 22:43 Social History Smoking Status: Never smoker alcohol intake: current [facility] ED Constitutional Constitutional ED: Denies chills or fever(s) ENT ENT ED: Reports other Details: Positive dental pain ; Denies sore throat Cardiovascular Cardiovascular: Denies chest pain Respiratory/Chest Respiratory/Chest: Denies cough or dyspnea Gastrointestinal Gastrointestinal: Denies abdominal pain, diarrhea, nausea or vomiting Genitourinary Genitourinary ED: Denies dysuria Musculoskeletal Musculoskeletal: Denies myalgias or neck pain Integumentary Denies rash Neurologic Neurologic: Denies headache(s) Hematologic/Lymphatic Hematologic/Lymphatic: Denies easy bleeding or easy bruising EXAM Physical Exam Const Vital Signs: 09/12/23 22:37 Temperature 99.3 F H Temperature Source Temporal Pulse Rate 87 Respiratory Rate 14 Blood Pressure 143/83 H Blood Pressure Mean 103 Pulse Ox 100 Positive well nourished and well developed General Appearance ED: well developed; Negative for pallor HEENT HEENT Narrative: Patient has multiple dental caries present. Main area of pain is in the right lower jaw near the molar. There is erythema and mild soft tissue swelling without obvious abscess formation. No airway edema or compromise. No signs of ANUG. No brawny edema in the submental space to suggest Gamaliel's angina. Eyes PERRL and EOMs intact bilaterally Neck supple Neck Narrative: Positive anterior cervical lymphadenopathy noted Resp normal respiratory effort and clear to auscultation bilaterally Cardio regular rate and regular rhythm Extremity normal to inspection Neuro oriented x3 and CN's II-XII intact bilaterally Sensorium / Orientation: alert Motor Exam: strength 5/5 throughout Psych mental status grossly normal Skin no rashes or lesions noted General Skin Exam: Negative for jaundice or pallor MDM MDM MDM Narrative Medical decision making narrative: Patient presented to the ER with persistent right lower dental pain but did not have findings concerning for ANUG Gamaliel's angina and there is no obvious dental abscess present on the surface that would require incision and drainage. Also based on his physical exam and vitals he does not have signs of systemic infection so do not feel need for imaging or laboratory studies. The patient was given a dental block as documented below for pain control and as he is already been prescribed amoxicillin from his dentist there is no need to provide further antibiotics. Patient will be discharged home and advised to talk to his dentist about further treatment options such as draining of the abscess versus tooth removal but at this point there is no signs of systemic infection or respiratory distress or surface abscess needing the size and drained so he is safe for discharge. Patient was given a right inferior alveolar dental block using 1 mL of 0.5% Marcaine and 1.5 mL of 2% lidocaine with epinephrine. Patient achieved good anesthesia with the injection and tolerated well without complication History & Record Review Discussion w/independent historian: Patient Discharge Plan Triage Chief Complaint: Dental ED Provider: Isra Carlson Dx/Rx/DC Orders Clinical Impression: Pain, dental, Dental infection Instructions: Dental Abscess, ED Dental Pain Prescriptions: New oxycodone-acetaminophen [Percocet] 5-325 mg tablet 1 tab PO Q6H PRN (Reason: pain) 3 Days Qty: 12 0RF No Action oxycodone-acetaminophen [Percocet] 5-325 mg tablet 1 tab PO Q6H PRN (Reason: pain) 3 Days Qty: 12 0RF penicillin V potassium 500 mg tablet 500 mg PO 4X/DAY Qty: 40 0RF naproxen [Naprosyn] 500 mg tablet 500 mg PO BID PRN (Reason: pain) Qty: 20 0RF Stand Alone Forms: ED Work / School Excuse Primary Care Provider: Care Physician,No Primary Referrals: Care Physician,No Primary [Primary Care Provider] - Activity Restrictions/Additional Instructions: Please continue the amoxicillin and ibuprofen but add the Percocet for improved pain control. Follow-up with your dentist for repeat evaluation and return to the ER should you have any further concerns Disposition Disposition: Home, Self Care Discharge Date/Time: 09/12/23 23:46
== END 2023-09-12 23:46 | disposition home or self-care (01) ==
PROVIDERS: Emergency Provider Emergency Medicine; Visit Provider Emergency Medicine
DX: K04.7 Periapical abscess without sinus (principal); K02.9 Dental caries, unspecified
CPT/HCPCS: 64999; 99282

== ENCOUNTER 2023-10-08 12:35 | Emergency (ER) | payer OTHER, SELFPAY ==
[2023-10-08 12:37] VITALS: BP 148/90; PULSE 73; RESP 16; TEMP 36.1; O2SAT 97; BMI 22.3
--- NOTE | 2023-10-08 13:06 | EDS_ITS ---
HPI History of Present Illness Chief Complaint: Ear Problem Informant: patient Narrative Narrative: 52-year-old male presenting to the emergency department chief complaint of left ear pain. Patient states that on Monday he began to have pressure in the left ear and then felt a pop and had drainage of fluid out of the ear. Since that time he has had some intermittent dizziness decreased hearing and pain. He notes nasal congestion. He states he is currently on an antibiotic prescribed by dentist for a dental problem. He does not know the name of the antibiotic. No reported fevers. He missed work on Monday because of the symptoms. PFSH PFSH Home Medications oxycodone-acetaminophen 5 mg-325 mg tablet (Percocet) 1 tab PO Q6H PRN pain 3 days #12 tabs 12/23/22 [Rx Last Taken Unknown] naproxen 500 mg tablet (Naprosyn) 500 mg PO BID PRN pain #20 tabs 08/29/23 [Rx Last Taken Unknown] penicillin V potassium 500 mg tablet 500 mg PO 4X/DAY #40 tabs 08/29/23 [Rx Last Taken Unknown] oxycodone-acetaminophen 5 mg-325 mg tablet (Percocet) 1 tab PO Q6H PRN pain 3 days #12 tabs 09/12/23 [Rx Last Taken Unknown] Allergy/AdvReac Type Severity Reaction Status Date / Time No Known Allergies Allergy Verified 10/08/23 12:36 Social History Smoking Status: Never smoker alcohol intake: current [facility] ED Constitutional Constitutional ED: Denies chills, fever(s) or weight loss Eyes Eyes: Denies change in vision or diplopia ENT ENT ED: Reports ear pain and other Details: Left ear drainage and decreased hearing. Nasal congestion. Right-sided dental pain ; Denies rhinorrhea or sore throat Cardiovascular Cardiovascular: Denies chest pain, orthopnea, palpitations or racing heartbeat Respiratory/Chest Respiratory/Chest: Denies cough, dyspnea or orthopnea Gastrointestinal Gastrointestinal: Denies abdominal pain, diarrhea, nausea or vomiting Genitourinary Genitourinary ED: Denies dysuria, hematuria or urinary frequency Musculoskeletal Musculoskeletal: Denies arthralgias or myalgias Integumentary Denies abscess or rash Neurologic Neurologic: Denies headache(s) or weakness Psychiatric Psychiatric: Denies anxiety, depression, suicidal ideation or suicidal thoughts Endocrine Endocrinology: Denies polydipsia, polyphagia or polyuria Allergic/Immunologic Allergic/Immunologic ED: Denies mouth swelling, tongue swelling or urticaria EXAM Physical Exam Const Vital Signs: 10/08/23 12:37 Temperature 97 F L Temperature Source Temporal Pulse Rate 73 Respiratory Rate 16 Blood Pressure 148/90 H Blood Pressure Mean 109 Pulse Ox 97 Oxygen Delivery Method Room Air Positive well nourished and well developed General Appearance ED: well developed HEENT Reports normocephalic, head/scalp atraumatic and moist mucous membranes HEENT Narrative: Left tympanic membrane shows rupture with retraction of the eardrum. The membrane is slightly erythematous. Right tympanic membrane is obscured by cerumen. There is evidence of turbinate edema/congestion. No focal dental abscess noted. Eyes PERRL and EOMs intact bilaterally Neck no lymphadenopathy, supple and no JVD Resp normal respiratory effort and clear to auscultation bilaterally Cardio regular rate, regular rhythm and no murmurs GI normal to inspection, nondistended, normoactive bowel sounds and non-tender Palpation: soft Back/Spine no CVA tenderness and normal ROM Extremity normal to inspection General Extremety ED: Negative for edema General Extremity: Negative for edema Neuro oriented x3 and CN's II-XII intact bilaterally Sensorium / Orientation: alert Motor Exam: strength 5/5 throughout Psych mental status grossly normal Mood & Affect: Negative for depressed or tearful Skin no rashes or lesions noted and no wounds MDM MDM MDM Narrative Medical decision making narrative: Patient is going to go home and call us with what antibiotic he is currently taking. We can change it for better ear coverage if need be though I suspect just by draining the fluid from the middle ear he will improve. He needs a work note for Monday. He was advised that if his symptoms are not improving there is a chance that the eardrum will not seal itself off and he may need to see ENT. I believe that the dizziness is related to the ruptured tympanic membrane. History & Record Review Discussion w/independent historian: Patient Discharge Plan Triage Chief Complaint: Ear Problem ED Provider: Reynaldo Gee Dx/Rx/DC Orders Clinical Impression: Acute ear pain, Ruptured tympanic membrane, Dizziness Instructions: Ruptured Eardrum Prescriptions: No Action oxycodone-acetaminophen [Percocet] 5-325 mg tablet 1 tab PO Q6H PRN (Reason: pain) 3 Days Qty: 12 0RF penicillin V potassium 500 mg tablet 500 mg PO 4X/DAY Qty: 40 0RF naproxen [Naprosyn] 500 mg tablet 500 mg PO BID PRN (Reason: pain) Qty: 20 0RF oxycodone-acetaminophen [Percocet] 5-325 mg tablet 1 tab PO Q6H PRN (Reason: pain) 3 Days Qty: 12 0RF Primary Care Provider: Care Physician,No Primary Referrals: Parviz Falcon MD [Med Staff - Active Staff] - 10-14 Days if not better Care Physician,No Primary [Primary Care Provider] - Disposition Disposition: Home, Self Care
== END 2023-10-08 13:18 | disposition home or self-care (01) ==
PROVIDERS: Emergency Provider Emergency Medicine; Visit Provider Emergency Medicine
DX: H72.92 Unspecified perforation of tympanic membrane, left ear (principal); R42 Dizziness and giddiness; H92.02 Otalgia, left ear
CPT/HCPCS: 99282

== ENCOUNTER 2025-03-07 19:33 | Emergency (ER) | payer OTHER, SELFPAY ==
[2025-03-07 19:33] VITALS: BP 135/92; PULSE 93; RESP 20; TEMP 36.4; O2SAT 97
--- NOTE | 2025-03-07 19:50 | EKG12_ITS ---
Test Reason : CP Blood Pressure : */* mmHG Vent. Rate : 86 BPM Atrial Rate : 86 BPM P-R Int : 118 ms QRS Dur : 80 ms QT Int : 354 ms P-R-T Axes : 43 70 16 degrees QTcB Int : 423 ms Normal sinus rhythm Normal ECG Confirmed by HENRY INGRAM MD ([id number]), staff editor JA ANDRES ([id number]) on 03/10/2025 9:18:29 AM Referred By: CYNDY Confirmed By: HENRY INGRAM MD
[2025-03-07 21:31] VITALS: O2SAT 100; BMI 23.0
--- NOTE | 2025-03-07 21:36 | ED.RN ---
Upon this RN's assessment, this RN asked the patient to demonstrate moving the patient's limbs, the patient started to shake his whole body, hold his breath and complained of the pain causing the shakiness. However, when the patient asked the patient to explain how the accident happened and why the patient waited until tonight to come in when the accident happened on Monday, the patient explained clearly while moving his limbs freely to point to the parts of his body that hurt.
[2025-03-07 22:01] VITALS: BP 123/83; PULSE 75; RESP 19; O2SAT 98
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
--- OUTSIDE RECORDS SUMMARY | 2025-03-07 22:27 | XMS RPT_ITS | CCD ---
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 Serial specimen #1, #2 or #3: 1 Performed By: #### L 501.4020, L300.8000, L100.0100, L500.2500 #### [facility] [address] [place], [address] Chloride [Moles/Vol] 102 mmol/L Normal 98-107 [facility] Comment on above: Order Comment: 'TROP ' Serial specimen #1, #2 or #3: 1 Performed By: #### L 501.4020, L300.8000, L100.0100, L500.2500 #### [facility] [address] [place], [address] CO2 [Moles/Vol] 24.0 mmol/L Normal 21.0-32.0 [facility] Comment on above: Order Comment: 'TROP ' Serial specimen #1, #2 or #3: 1 Performed By: #### L 501.4020, L300.8000, L100.0100, L500.2500 #### [facility] [address] [place], [address] Creatinine [Mass/Vol] 1.19 mg/dL Normal 0.70-1.30 [facility] Comment on above: Order Comment: 'TROP ' Serial specimen #1, #2 or #3: 1 Result Comment: The validity of the calculated GFR GFRAA in patients over 70 years has not been determined. Clinical correlation is essential. Performed By: #### L 501.4020, L300.8000, L100.0100, L500.2500 #### [facility] [address] [place], [address] ECRCL 56.83 ml/min Normal [facility] Comment on above: Order Comment: 'TROP ' Serial specimen #1, #2 or #3: 1 Performed By: #### L 501.4020, L300.8000, L100.0100, L500.2500 #### [facility] [address] [place], [address] EST GFR - AA 83 mL/min Normal >60 [facility] Comment on above: Order Comment: 'TROP ' Serial specimen #1, #2 or #3: 1 Result Comment: Afri can Yemeni GFR Calc Performed By: #### L 501.4020, L300.8000, L100.0100, L500.2500 #### [facility] [address] [place], [address] GAP 7 Normal 5-15 [facility] Comment on above: Order Comment: 'TROP ' Serial specimen #1, #2 or #3: 1 Performed By: #### L 501.4020, L300.8000, L100.0100, L500.2500 #### [facility] [address] [place], [address] GFR/1.73 sq M.predicted among non-blacks MDRD (S/P/Bld) [Vol rate/Area] 69 mL/min/{1.73_m2} Normal >60 [facility] Comment on above: Order Comment: 'TROP ' Serial specimen #1, #2 or #3: 1 Result Comment: Non- GFR Calc Performed By: #### L 501.4020, L300.8000, L100.0100, L500.2500 #### [facility] [address] [place], [address] Glucose [Mass/Vol] 100 mg/dL Normal 74-106 [facility] Comment on above: Order Comment: 'TROP ' Serial specimen #1, #2 or #3: 1 Result Comment: Fast ing Glucose result from 100 to 125 mg/dL suggests IMPAIRED HOMEOSTASIS per A.D.A. criteria. Performed By: #### L 501.4020, L300.8000, L100.0100, L500.2500 #### [facility] [address] [place], [address] Potassium [Moles/Vol] 4.0 mmol/L Normal 3.5-5.1 [facility] Comment on above: Order Comment: 'TROP ' Serial specimen #1, #2 or #3: 1 Performed By: #### L 501.4020, L300.8000, L100.0100, L500.2500 #### [facility] [address] [place], [address] Sodium [Moles/Vol] 133 mmol/L Low 136-145 [facility] Comment on above: Order Comment: 'TROP ' Serial specimen #1, #2 or #3: 1 Performed By: #### L 501.4020, L300.8000, L100.0100, L500.2500 #### [facility] [address] [place], [address] Urea nitrogen [Mass/Vol] 22 mg/dL High 7-18 [facility] Comment on above: Order Comment: 'TROP ' Serial specimen #1, #2 or #3: 1 Performed By: #### L 501.4020, L300.8000, L100.0100, L500.2500 #### [facility] [address] [place], [address] Basophil percentageOrdered B y: Sara Braxtonsheliakyra on 10-14-2022 Basophil percentage 0-5 SEEN /hpf 0-5 [facility] Basophils/100 WBC (Bld) 0.8 % 0-1 [facility] Chloride [Moles/Vol] 102 mmol/L 98-107 [facility] Eosinophils/100 WBC (Bld) 1.5 % 0-5 [facility] Glucose [Mass/Vol] 100 mg/dL 74-106 [facility] Comment on above: Fasting Glucose resu lt from 100 to 125 mg/dL suggests IMPAIRED HOMEOSTASIS per A.D.A. criteria. Neutrophils (Bld) [#/Vol] 5.6 10*3/uL 2.0-7.7 [facility] Neutrophils/100 WBC (Bld) 75.4 % 47-70 [facility] Potassium [Moles/Vol] 4.0 mmol/L 3.5-5.1 [facility] Sodium [Moles/Vol] 133 mmol/L 136-145 [facility] WBC (Bld) [#/Vol] 7.4 10*3/uL 4.4-11.0 [facility] Bedside Glucoseon 10-14-2022 FINGERSTICK GLU 92 mg/dL Normal 74-106 [facility] Comment on above: Result Comment: DARRON PRYOR OF PATIENT CARE PER NURSING PROTOCOL Performed By: #### L 501.080 #### [facility] [address] [place], [place], [id number] Bilirubin Test strip Ql (U)O rdered By: Sara Silva on 10-14-2022 Bilirubin Ql (U) Negative Negative [facility] Blood erythrocytes count (nu mber/volume)Ordered By: Sara Silva on 10-14-2022 RBC (Bld) [#/Vol] 5.12 10*6/uL 4.6-6.2 [facility] Blood hemoglobin measurement (mass/volume)Ordered By: Sara Silva on 10-14-2022 Hemoglobin (Bld) [Mass/Vol] 13.6 g/dL 13.0-16.5 [facility] Blood lymphocytes/100 leukoc ytesOrdered By: Sara Silva on 10-14-2022 Lymphocytes/100 WBC (Bld) 14.7 % 19-41 [facility] Blood monocytes/100 leukocyt esOrdered By: Sara Silva on 10-14-2022 Monocytes/100 WBC (Bld) 7.3 % 0-10 [facility] Blood platelet mean volumeOr dered By: Sara Silva on 10-14-2022 Platelet mean volume (Bld) [Entitic vol] 10.2 fL 6.2-12.0 [facility] CBC W/Diff, Automatedon 09-22 Absolute Lymph 1.08 X10 3/uL Normal 0.83-4.51 [facility] Comment on above: Performed By: #### L 501.4020, L300.8000, L100.0100, L500.2500 #### [facility] [address] [place], [address] Absolute Neut 5.6 X10 3/uL Normal 2.0-7.7 [facility] Comment on above: Performed By: #### L 501.4020, L300.8000, L100.0100, L500.2500 #### [facility] [address] [place], [address] Basophils/100 WBC (Bld) 0.8 % Normal 0-1 [facility] Comment on above: Performed By: #### L 501.4020, L300.8000, L100.0100, L500.2500 #### [facility] [address] [place], [address] Eosinophils/100 WBC (Bld) 1.5 % Normal 0-5 [facility] Comment on above: Performed By: #### L 501.4020, L300.8000, L100.0100, L500.2500 #### [facility] [address] [place], [address] Erythrocyte distribution width (RBC) [Ratio] 17.1 % High 11.6-14.6 [facility] Comment on above: Performed By: #### L 501.4020, L300.8000, L100.0100, L500.2500 #### [facility] [address] [place], [address] Hematocrit (Bld) [Volume fraction] 43.1 % Normal 40-54 [facility] Comment on above: Performed By: #### L 501.4020, L300.8000, L100.0100, L500.2500 #### [facility] [address] [place], [address] Hemoglobin (Bld) [Mass/Vol] 13.6 g/dL Normal 13.0-16.5 [facility] Comment on above: Performed By: #### L 501.4020, L300.8000, L100.0100, L500.2500 #### [facility] [address] [place], [address] IG% 0.300 Normal 0.0-0.9 [facility] Comment on above: Result Comment: IG% - Immature Granulocytes (promyelocytes, myelocytes and metamyelocytes) > 1% indicates that a LEFT SHIFT is Present. Performed By: #### L 501.4020, L300.8000, L100.0100, L500.2500 #### [facility] [address] [place], [address] Lymphocytes/100 WBC (Bld) 14.7 % Low 19-41 [facility] Comment on above: Performed By: #### L 501.4020, L300.8000, L100.0100, L500.2500 #### [facility] [address] [place], [address] MCH (RBC) [Entitic mass] 26.6 pg Low 27.0-32.0 [facility] Comment on above: Performed By: #### L 501.4020, L300.8000, L100.0100, L500.2500 #### [facility] [address] [place], [address] MCHC (RBC) [Mass/Vol] 31.6 g/dL Low 32-36 [facility] Comment on above: Performed By: #### L 501.4020, L300.8000, L100.0100, L500.2500 #### [facility] [address] [place], [address] MCV (RBC) [Entitic vol] 84.2 fL Normal 80-94 [facility] Comment on above: Performed By: #### L 501.4020, L300.8000, L100.0100, L500.2500 #### [facility] [address] [place], [address] Monocytes/100 WBC (Bld) 7.3 % Normal 0-10 [facility] Comment on above: Performed By: #### L 501.4020, L300.8000, L100.0100, L500.2500 #### [facility] [address] [place], [address] Neutrophils/100 WBC (Bld) 75.4 % High 47-70 [facility] Comment on above: Performed By: #### L 501.4020, L300.8000, L100.0100, L500.2500 #### [facility] [address] [place], [address] Nucleated RBC (Bld) [#/Vol] 0 10*3/uL Normal 0-5 [facility] Comment on above: Performed By: #### L 501.4020, L300.8000, L100.0100, L500.2500 #### [facility] [address] [place], [address] Platelet mean volume (Bld) [Entitic vol] 10.2 fL Normal 6.2-12.0 [facility] Comment on above: Performed By: #### L 501.4020, L300.8000, L100.0100, L500.2500 #### [facility] [address] [place], [address] Platelets (Bld) [#/Vol] 306 10*3/uL Normal 150-450 [facility] Comment on above: Performed By: #### L 501.4020, L300.8000, L100.0100, L500.2500 #### [facility] [address] [place], [address] RBC (Bld) [#/Vol] 5.12 10*6/uL Normal 4.6-6.2 [facility] Comment on above: Performed By: #### L 501.4020, L300.8000, L100.0100, L500.2500 #### [facility] [address] [place], [address] RDW SD 53.0 fl High 35.1-43.9 [facility] Comment on above: Performed By: #### L 501.4020, L300.8000, L100.0100, L500.2500 #### [facility] [address] [place], [address] WBC (Bld) [#/Vol] 7.4 10*3/uL Normal 4.4-11.0 [facility] Comment on above: Performed By: #### L 501.4020, L300.8000, L100.0100, L500.2500 #### [facility] [address] [place], [address] CTA Chest W/WO Contraston CTA Chest W/WO Contrast [facility] Imaging Services [address] [facility] [address] CTA Chest W/WO Contrast MR#: [id number] Acct: [id number] Name: JONATAN VALLECILLO Rep #: [id number] : 1970 M 51 From: Jimmy Thomson MD PCP: Care Physician,No Primary Status: REG ER Study: CTA Chest W/WO Contrast Date of Exam: 10/14/22 Exam# [id number] Ordering Dr: Sara Silva STUDY: CTA CHEST REASON FOR EXAM: Male, 51 years old. chest pain RADIATION DOSAGE (If Supplied By Facility): CTDIvol = ( 9.0 ) mGy, DLP = ( 294.78 ) mGycm TECHNIQUE: The examination was performed with the intravenous administration of IV 100mL Isovue-370. Post-processing of the angiographic images was performed, with multiplanar reformation and 3D reconstruction. Individualized dose optimization techniques were used for this CT. COMPARISON: None. FINDINGS: Normal enhancement of the main pulmonary artery and right and left pulmonary arteries. Normal enhancement of the bilateral peripheral pulmonary arteries. There is no demonstrated pulmonary embolism. Normal thoracic aorta and visualized great vessels. There is no demonstrated aortic dissection. Normal heart and pericardium. Normal mediastinum. Normal hilar regions. Normal visualized trachea and bronchi. The lungs are well expanded. Normal pulmonary parenchyma. Normal pleura. Normal chest wall structures. Dorsal spine demonstrates mild degenerative change.. Normal visualized upper abdomen. CT/CTA Chest W/WO Contrast IMPRESSION: No acute abnormalities, without a demonstrated pulmonary embolism or arterial dissection. Electronically Signed: Jimmy Thomson MD at 18:45 EDT Reading Location ID and State: [facility] / [place] , Service support , CC: SYDNEE Silva; No Primary Care Physician Engraver Wood: Signed Normal [facility] Chest 1 View (Portable)on Chest 1 View (Portable) [facility] Imaging Services [address] [place] [id number] Chest 1 View (Portable) MR#: [id number] Acct: [id number] Name: JONATAN VALLECILLO Rep #: [id number] : 1970 M 51 From: Jimmy Thomson MD PCP: Care Physician,No Primary Status: REG ER Study: Chest 1 View (Portable) Date of Exam: 10/14/22 Exam# [id number] Ordering Dr: Sara Silva STUDY: X-RAY CHEST REASON FOR EXAM: Male, 51 years old. chest pain TECHNIQUE: AP portable COMPARISON: None. FINDINGS: The lungs are clear and expanded. There is no demonstrated pleural abnormality. Normal size heart. Normal mediastinum and pennie. Normal visualized pulmonary arteries. Normal visualized aortic arch and descending thoracic aorta. Normal visualized thoracic spine. Normal visualized ribs, clavicles, and shoulders. There is no demonstrated abnormality of the visualized soft tissue structures of the upper abdomen. RAD/Chest 1 View (Portable) IMPRESSION: Normal x-ray examination of the chest. Electronically Signed: Jimmy Thomson MD at 17:35 EDT , CC: SYDNEE Silva; No Primary Care Physician Engraver Wood: Signed Normal [facility] D-Dimer Quantitative (DVT/PE )on 10-14-2022 D-DIMER QUANT 0.93 FEU/ug/m Invalid Interpretation Code 0.27-0.49 [facility] Comment on above: Result Comment: D-Di aishwarya ELEVATED (>0.49): Additional studies and clinical assessments are indicated to conclude diagnosis of: Deep Vein Thrombosis (DVT) or Pulmonary Embolism (PE) CRITICAL VALUE VERIFIED. CALLED TO MARIANO 10/14/22 1809 Stephania Overton. RESULTS READ BACK BY SAME. Performed By: #### L 501.4020, L300.8000, L100.0100, L500.2500 #### [facility] [address] [facility] [place], [address] Determination of erythrocyte mean corpuscular volume (MCV)Ordered By: Sara Silva on 10-14-2022 MCV (RBC) [Entitic vol] 84.2 fL 80-94 [facility] Emergency Department Summary on 10-14-2022 Emergency Department Summary [facility] Medical Records Department [address] [place] [address] Emergency Department Summary 10/14/22 MR#: [id number] Acct: [id number] Name: JONATAN VALLECILLO Rep #: [id number] : 1970 51 From: Sara RANDHAWA PCP: Care Physician,No Primary Status:DEP ER Location: ED HPI History of Present Illness Chief Complaint: Neuro S/Sx Narrative Narrative: Patient states around 4 PM he was at work at his [employer] job when he started having chest pain and bilateral arm pain. He felt lightheaded like he might fall and pass out. His left arm started to tingle. He started his shift around noon and felt fine and ate before going in. He denies history of health problems and takes no medications. He has not seen a doctor in about 2 years. No cardiac history. Denies smoking, alcohol, or drug use. He does report feeling intermittently hot and cold over the last week. PFSH PFSH Home Medications NK 12/02/18 [History Last Taken Unknown] Allergy/AdvReac Type Severity Reaction Status Date / Time No Known Allergies Allergy Verified 10/14/22 16:36 Social History Smoking Status: Former smoker alcohol intake: current ROS ROS ED ROS Narrative Constitutional: Negative for fever. Eyes: Negative for visual change. ENT: Negative for rhinorrhea. CVS: Positive for chest pain. Negative for palpitations, syncope. Respiratory: Negative for shortness of breath, cough. GI: Negative for abdominal pain, nausea, vomiting, diarrhea, constipation, melena, hematochezia. : Negative for dysuria. Neuro: Negative for headache. Skin: Negative for rash, abscess, or wound. EXAM Physical Exam Narrative Exam Narrative: CONST: Patient sitting in no acute distress. EYES: Normal inspection. ENT: Normal inspection, moist mucous membranes. NECK: Normal inspection. RESP: No respiratory distress, CTAB. CVS: Regular rate and rhythm, no murmur, no gallop. ABD: Soft and nontender, no guarding or rebound, nondistended. SKIN: Color normal, no rash, warm, dry, intact. EXTREMITIES: Normal appearance, no pedal edema. NEURO: Oriented x4. Face symmetric. 5/5 upper and lower extremity strength, no drift, normal [id number]-hygl and pdol-no-qwgl bilaterally. PSYCH: Normal affect. Const Vital Signs: 10/14/22 16:36 10/14/22 16:56 10/14/22 17:02 Temperature 98.5 F Temperature Source Temporal Pulse Rate 94 91 Respiratory Rate 18 12 Respiratory Effort Normal Non-Labored Respiratory Pattern Normal Blood Pressure 135/91 H 137/90 H Blood Pressure Mean 105 105 Pulse Ox 99 100 Oxygen Delivery Method Room Air Room Air 10/14/22 17:30 10/14/22 18:00 10/14/22 19:00 Temperature Temperature Source Pulse Rate 84 83 73 Respiratory Rate 14 16 13 Respiratory Effort Respiratory Pattern Blood Pressure 128/85 H 126/82 H 109/75 Blood Pressure Mean 99 96 86 Pulse Ox 99 100 99 Oxygen Delivery Method Room Air Room Air Room Air 10/14/22 19:44 Temperature Temperature Source Pulse Rate 75 Respiratory Rate 18 Respiratory Effort Respiratory Pattern Blood Pressure 117/73 Blood Pressure Mean Pulse Ox 100 Oxygen Delivery Method Physical Exam Const Vital Signs: 10/14/22 16:36 10/14/22 16:56 10/14/22 17:02 Temperature 98.5 F Temperature Source Temporal Pulse Rate 94 91 Respiratory Rate 18 12 Respiratory Effort Normal Non-Labored Respiratory Pattern Normal Blood Pressure 135/91 H 137/90 H Blood Pressure Mean 105 105 Pulse Ox 99 100 Oxygen Delivery Method Room Air Room Air 10/14/22 17:30 10/14/22 18:00 10/14/22 19:00 Temperature Temperature Source Pulse Rate 84 83 73 Respiratory Rate 14 16 13 Respiratory Effort Respiratory Pattern Blood Pressure 128/85 H 126/82 H 109/75 Blood Pressure Mean 99 96 86 Pulse Ox 99 100 99 Oxygen Delivery Method Room Air Room Air Room Air 10/14/22 19:44 Temperature Temperature Source Pulse Rate 75 Respiratory Rate 18 Respiratory Effort Respiratory Pattern Blood Pressure 117/73 Blood Pressure Mean Pulse Ox 100 Oxygen Delivery Method MDM MDM MDM Narrative Medical decision making narrative: Patient had chest pressure and bilateral arm pain. Morley lightheaded. He appears uncomfortable but nontoxic. Vital signs are within normal limits. His exam overall is benign. Nurses were concerned for any neurological complaints since he seemed weak when walking in but he has no focal deficits. I do not think his symptoms sound consistent with a stroke. Cardiac work-up was started. EKG is sinus with no ischemic changes. CBC, BMP unremarkable. Troponin is less than (more content not included)... Normal [facility] Glucose Glucometer (BldC) [M ass/Vol]Ordered By: ED PROVIDER on 10-14-2022 Glucose [Mass/Vol] 92 mg/dL 74-106 [facility] Comment on above: MANAGEMENT OF PATIEN T CARE PER NURSING PROTOCOL Hematocrit Auto (Bld) [Volum e fraction]Ordered By: Sara Silva on 10-14-2022 Hematocrit (Bld) [Volume fraction] 43.1 % 40-54 [facility] Ketones Test strip Ql (U)Ord ered By: Sara Silva on 10-14-2022 Ketones Ql (U) Negative Negative [facility] L501.4020on 10-14-2022 TROPONIN-I HS < 3 Low 3.0-78.0 [facility] Comment on above: Order Comment: 'TROP ' Serial specimen #1, #2 or #3: 1 Result Comment: Willem aplmer Note: New Test Units and Gender Specific Reference Ranges. For more information see Policy Stat Procedure [place] High Sensitivity Troponin (TNIH) and attachments. Performed By: #### L 501.4020, L300.8000, L100.0100, L500.2500 #### [facility] [address] [place], [place], [id number] Laboratory - Chemistry and C hemistry - challengeOrdered By: Sara Silva on 10-14-2022 CO2 [Moles/Vol] 24.0 mmol/L 21.0-32.0 [facility] Urea nitrogen/Creatinine [Mass ratio] 18.5 mg/mg 10-20 [facility] Laboratory - Hematology and Cell countsOrdered By: Sara Silva on 10-14-2022 Erythrocyte distribution width (RBC) [Entitic vol] 53.0 fL 35.1-43.9 [facility] Erythrocyte distribution width (RBC) [Ratio] 17.1 % 11.6-14.6 [facility] Immature granulocytes/100 WBC (Bld) 0.300 % 0.0-0.9 [facility] Comment on above: IG% - Immature Granu locytes (promyelocytes, myelocytes and metamyelocytes) > 1% indicates that a LEFT SHIFT is Present. MCH (RBC) [Entitic mass] 26.6 pg 27.0-32.0 [facility] Nucleated RBC/100 WBC (Bld) [Ratio] 0 % 0-5 [facility] MCHC Auto (RBC) [Mass/Vol]Or dered By: Sara Silva on 10-14-2022 MCHC (RBC) [Mass/Vol] 31.6 g/dL 32-36 [facility] Mucus LM Ql (Urine sed)Order ed By: Sara Silva on 03-24-2023 Mucus Ql (Urine sed) 0 SEEN /hpf [facility] Nitrite Test strip Ql (U)Ord ered By: Sara Silva on 10-14-2022 Nitrite Ql (U) Negative Negative [facility] No Panel InformationOrdered By: Sara Silva on 10-14-2022 Ethyl Alcohol Level < 3.0 mg/dL [facility] Comment on above: The serum:whole bloo d ethanol ratio is approximately 1.14and varies slightly with hematocrit. Medical Alcohol reference interval and critical value innon-tolerant individuals; 50 - 100 Impairment 100 Intoxication 100 - 250 Severe Poisoning 250 - 400 Deep/possible fatal coma D-Dimer Quantitative (PE/DVT) 0.93 FEU/ug/m 0.27-0.49 [facility] Comment on above: D-Dimer ELEVATED (>0 .49): Additional studies and clinicalassessments are indicated to conclude diagnosis of:Deep Vein Thrombosis (DVT) or Pulmonary Embolism (PE)CRITICAL VALUE VERIFIED. CALLED TO MARIANO10/14/22 180 Stephania Overton.RESULTS READ BACK BY SAME. Estimated Creatinine Clearance Calc 56.83 ml/min [facility] Estimated GFR (MDRD) Amer 83 mL/min >60 [facility] Comment on above: GFR Calc Estimated GFR (MDRD) Non-Af Amer 69 mL/min >60 [facility] [facility] Comment on above: Non- GFR Calc Troponin I High Sensitivity < 3 pg/mL 3.0-78.0 [facility] Comment on above: Please Note: New [place] t Units and Gender Specific Reference Ranges. For more information see Policy Stat Procedure [place] High Sensitivity Troponin (TNIH) and attachments. Platelets bldOrdered By: Radha Silva on 10-14-2022 Platelets (Bld) [#/Vol] 306 10*3/uL 150-450 [facility] Protein Test strip Ql (U)Ord ered By: Sara Silva on 10-14-2022 Protein Ql (U) Negative Negative [facility] Serum or plasma calcium butch urement (mass/volume)Ordered By: Sara Silva on 10-14-2022 Calcium [Mass/Vol] 9.3 mg/dL 8.5-10.1 [facility] Serum or plasma creatinine m easurement (mass/volume)Ordered By: Sara Silva on 10-14-2022 Creatinine [Mass/Vol] 1.19 mg/dL 0.70-1.30 [facility] Comment on above: The validity of the calculated GFR & GFRAA in patients over 70 years has not been determined. Clinical correlation is essential. Serum or plasma urea nitroge n measurement (mass/volume)Ordered By: Sara Silva on 10-14-2022 Urea nitrogen [Mass/Vol] 22 mg/dL 7-18 [facility] Squamous epithelial cells de tection in urine sediment by light microscopyOrdered By: Sara Silva on 10-14-2022 Epithelial cells.squamous LM Ql (Urine sed) 0 SEEN /hpf 0-5 [facility] Thin prep Papanicolaou smear with manual screeningOrdered By: Sara Silva on 10-14-2022 Thin prep Papanicolaou smear with manual screening 7 -15 [facility] Urinalysis, Completeon 10-14 WBC 0-5 SEEN Normal 0-5 [facility] Comment on above: Order Comment: FELICIA WILLIS TO SPECIFY Performed By: #### L 400.0001 #### [facility] [address] [place], [address] BACTERIA 0 SEEN Normal None Seen [facility] Comment on above: Order Comment: FELICIA HOWELLOR TO SPECIFY Performed By: #### L 400.0001 #### [facility] [address] [place], [address] EPI,SQUAMOUS 0 SEEN Normal 0-5 [facility] Comment on above: Order Comment: FELICIA HOWELLOR TO SPECIFY Performed By: #### L 400.0001 #### [facility] [address] [place], [address] Mucus Ql (Urine sed) 0 SEEN Normal [facility] Comment on above: Order Comment: FELICIA HOWELLOR TO SPECIFY Performed By: #### L [id number] #### [facility] [address] [place], [address] RBC 0 SEEN Normal 0-5 [facility] Comment on above: Order Comment: COLLE CTOR TO SPECIFY Performed By: #### L 400.0001 #### [facility] [place], [address] Urine blood detectionOrdered By: Sara Silva on 10-14-2022 RBC Ql (U) Negative Negative [facility] RBC Ql (U) 0 SEEN /hpf 0-5 [facility] Urine clarityOrdered By: Radha Silva on 10-14-2022 Clarity (U) Clear Clear [facility] Urine color determinationOrd ered By: Sara Silva on 10-14-2022 Color (U) Yellow Yellow [facility] Urine glucose detectionOrder ed By: Sara Silva on 10-14-2022 Glucose Ql (U) Normal mg/dl Normal [facility] Urine leukocyte esterase det ection by dipstickOrdered By: Sara Silva on 10-14-2022 Leukocyte esterase Test strip Ql (U) 100 /ul Negative [facility] Urine pHOrdered By: Sara mata on 10-14-2022 pH (U) 6.0 [pH] 5.0 - 8.0 [facility] Urine sediment bacteria coun t by microscopy (number/high power field)Ordered By: Sara Silva on 10-14-2022 Bacteria LM.HPF (Urine sed) [#/Area] 0 /[HPF] None Seen [facility] Urine specific gravity measu rementOrdered By: Sara Silva on 10-14-2022 Specific gravity (U) [Rel density] 1.010 1.002-1.030 [facility] Urobilinogen Auto test strip Ql (U)Ordered By: Sara Silva on 10-14-2022 Urobilinogen Ql (U) Normal mg/dl Normal [facility] CNOVon 08-13-2018 CNOV Office Visit (UCWSTR ) VIN VALLECILLO ([id number]) 1970 M Date Time Provider Department 08/13/18 3:30 PM MARISOL DOCKERY (ANTHONY) CARLITA During your visit today, we recorded the following information about you: Temperature Pulse Respiration Blood pressure 103.2 degrees 94/minute 16/minute 136/86 Weight 57.5 kg Marisol Dockery APRN.CNP 08/13/2018 4:25 PM Signed Subjective The history is provided by the patient. No interpreter and translator was used. HPI Vin Vallecillo is a 47 year old male who presents today for CC of cough, fever. This started yesterday. He has not taken any medication. No flu shot. BP 136/86 Pulse 94 Temp (!) 39.6 ?C (103.2 ?F) (Tympanic) Resp 16 Wt 57.5 kg (126 lb 12.8 oz) SpO2 95% Social History Marital status: Single Spouse name: Years of education: Number of children: Social History Main Topics Smoking status: Never Smoker Smokeless tobacco: Never Used No past medical history on file. I have confirmed and edited as necessary, the [facility] Review of Systems Constitutional: Positive for chills, fever and malaise/fatigue. HENT: Negative for congestion, ear pain, sinus pain and sore throat. Respiratory: Positive for cough. Musculoskeletal: Positive for myalgias. Neurological: Negative for headaches. All other systems reviewed and are negative. Objective Physical Exam Constitutional: He is well-developed, well-nourished, and in no distress. HENT: Head: Normocephalic and atraumatic. Right Ear: Tympanic membrane, external ear and ear canal normal. Left Ear: Tympanic membrane, external ear and ear canal normal. Nose: No mucosal edema or rhinorrhea. Right sinus exhibits no maxillary sinus tenderness and no frontal sinus tenderness. Left sinus exhibits no maxillary sinus tenderness and no frontal sinus tenderness. Mouth/Throat: Uvula is midline and mucous membranes are normal. No oropharyngeal exudate, posterior oropharyngeal edema, posterior oropharyngeal erythema or tonsillar abscesses. Cardiovascular: Normal rate, regular rhythm and normal heart sounds. Pulmonary/Chest: Effort normal and breath sounds normal. He has no decreased breath sounds. He has no wheezes. He has no rhonchi. He has no rales. A dry harsh cough was noted during this encounter. Talking in full sentences. Handling secretions without drooling. Lips and nailbeds are pink without cyanosis. Lymphadenopathy: Head (right side): No submental, no submandibular, no tonsillar and no preauricular adenopathy present. Head (left side): No submental, no submandibular, no tonsillar and no preauricular adenopathy present. He has no cervical adenopathy. Right cervical: No superficial cervical adenopathy present. Left cervical: No superficial cervical adenopathy present. Nursing note and vitals reviewed. ASSESSMENT/PLAN: 1. Flu-like symptoms - ICD9: 780.99, ICD10: R68.89 Rest, increase water intake Decrease intake caffiene or alcohol Motrin or Tylenol as needed for fever or pain. Tylenol (generic acetaminophen) 500 mg-2 tabs every 8 hrs. as needed for fever and aches Ibuprofen 600 mg (3-200mg tablets) every 6 hours Salt water gargles, chloraseptic spray or lozenges as needed for sore throat. Warm beverages, honey. Nasal saline spray as needed Cool mist humidifier at night * Seek medical care immediately, call 911, go to ER if you have chest pain, difficulty breathing, shortness of breath, inability to swallow. Diagnosis and treatment plan were discussed and questions were answered to the patient's satisfaction. Pt acknowledged understanding of concepts and follow up plan. Specific signs and symptoms that would indicate the need for higher level of care were discussed in detail warranting prompt ER evaluation. Marisol Dockery APRN.ANTHONY Dockery APRN.ANTHONY 08/13/2018 4:25 PM Addendum ASSESSMENT/PLAN: 1. Flu-like symptoms - ICD9: 780.99, ICD10: R68.89 Rest, increase water intake Decrease intake caffiene or alcohol Motrin or Tylenol as needed for fever or pain. Tylenol (generic acetaminophen) 500 mg-2 tabs every 8 hrs. as needed for fever and aches Ibuprofen 600 mg (3-200mg tablets) every 6 hours Salt water gargles, chloraseptic spray or lozenges as needed for sore throat. Warm beverages, honey. Nasal saline spray as needed Cool mist humidifier at night * Seek medical care immediately, call 911, go to ER if you have chest pain, difficulty breathing, shortness of breath, inability to swallow. Referring Provider: SELF [200] Allergies As of Date: 08/13/2018 (No Known Allergies) Date Reviewed: 08/13/2018 Reviewed by: Marisol Dockery - Fully Assessed Reason for Visit: vomiting, cough, head and bodyaches, fever [Other] Cmt: symptoms started yesterday Primary Visit Diagnosis:Flu-like symptoms [R68.89] Order(s):[] ibuprofen 600 mg tab(s) (MOTRIN)Disp: Rfl: Problem List As Of Date: 08/13/2018 (None) Other instructions from your clinician: ASSESSMENT/PLAN: 1. Flu-like symptoms - ICD9: 780.99, ICD10: R68.89 Rest, increase water intake Decrease intake caffiene or alcohol Motrin or Tylenol as needed for fever or pain. Tylenol (generic acetaminophen) 500 mg-2 tabs every 8 hrs. as needed for fever and aches Ibuprofen 600 mg (3-200mg tablets) every 6 hours Salt water gargles, chloraseptic spray or lozenges as needed for sore throat. Warm beverages, honey. Nasal saline spray as needed Cool mist humidifier at night * Seek medical care immediately, call 911, go to ER if you have chest pain, difficulty breathing, shortness of breath, inability to swallow. Prescriptions ordered this encounter Disp Refills Start End IBUPROFEN 600 MG TABLET 08/13/2018 08/13/2018 Route: ORAL Letter Text Marisol Dockery APRN.CNP Urgent [facility] [address] [address] Dept: [phone] 08/13/2018 Vin Vallecillo [address] [address] To Whom it May Concern: This is to certify that Vin Vallecillo was seen at our office for medical care. Vin may return to work when fever is less than 100 for 24 hours. Sincerely: Marisol Dockery APRN.CNP Encounter Status:Closed by MARISOL DOCKERY CNP on 08/13/18 [facility] PROGRESSon 08-13-2018 Protein mass conc HNO ID: [id number] Author: Marisol Dockery Service: (none) Author Type: Nurse Practitioner Type: Progress Notes Filed: 08/13/2018 4:25 PM Note Text: Subjective The history is provided by the patient. No interpreter and translator was used. HPI Vin Vallecillo is a 47 year old male who presents today for CC of cough, fever. This started yesterday. He has not taken any medication. No flu shot. BP 136/86 Pulse 94 Temp (!) 39.6 ?C (103.2 ?F) (Tympanic) Resp 16 Wt 57.5 kg (126 lb 12.8 oz) SpO2 95% Social History Marital status: Single Spouse name: Years of education: Number of children: Social History Main Topics Smoking status: Never Smoker Smokeless tobacco: Never Used No past medical history on file. I have confirmed and edited as necessary, the [facility] Review of Systems Constitutional: Positive for chills, fever and malaise/fatigue. HENT: Negative for congestion, ear pain, sinus pain and sore throat. Respiratory: Positive for cough. Musculoskeletal: Positive for myalgias. Neurological: Negative for headaches. All other systems reviewed and are negative. Objective Physical Exam Constitutional: He is well-developed, well-nourished, and in no distress. HENT: Head: Normocephalic and atraumatic. Right Ear: Tympanic membrane, external ear and ear canal normal. Left Ear: Tympanic membrane, external ear and ear canal normal. Nose: No mucosal edema or rhinorrhea. Right sinus exhibits no maxillary sinus tenderness and no frontal sinus tenderness. Left sinus exhibits no maxillary sinus tenderness and no frontal sinus tenderness. Mouth/Throat: Uvula is midline and mucous membranes are normal. No oropharyngeal exudate, posterior oropharyngeal edema, posterior oropharyngeal erythema or tonsillar abscesses. Cardiovascular: Normal rate, regular rhythm and normal heart sounds. Pulmonary/Chest: Effort normal and breath sounds normal. He has no decreased breath sounds. He has no wheezes. He has no rhonchi. He has no rales. A dry harsh cough was noted during this encounter. Talking in full sentences. Handling secretions without drooling. Lips and nailbeds are pink without cyanosis. Lymphadenopathy: Head (right side): No submental, no submandibular, no tonsillar and no preauricular adenopathy present. Head (left side): No submental, no submandibular, no tonsillar and no preauricular adenopathy present. He has no cervical adenopathy. Right cervical: No superficial cervical adenopathy present. Left cervical: No superficial cervical adenopathy present. Nursing note and vitals reviewed. ASSESSMENT/PLAN: 1. Flu-like symptoms - ICD9: 780.99, ICD10: R68.89 Rest, increase water intake Decrease intake caffiene or alcohol Motrin or Tylenol as needed for fever or pain. Tylenol (generic acetaminophen) 500 mg-2 tabs every 8 hrs. as needed for fever and aches Ibuprofen 600 mg (3-200mg tablets) every 6 hours Salt water gargles, chloraseptic spray or lozenges as needed for sore throat. Warm beverages, honey. Nasal saline spray as needed Cool mist humidifier at night * Seek medical care immediately, call 911, go to ER if you have chest pain, difficulty breathing, shortness of breath, inability to swallow. Diagnosis and treatment plan were discussed and questions were answered to the patient's satisfaction. Pt acknowledged understanding of concepts and follow up plan. Specific signs and symptoms that would indicate the need for higher level of care were discussed in detail warranting prompt ER evaluation. Marisol Dockery APRN.RETAIL ACCOUNT REPRESENTATIVE [facility] Vital Signs Date Time Vital Sign Value Performing Clinician Julii fish 10-08-2023 12:37-0400 Body height 160.02 cm [facility] 10-08-2023 12:37-0400 Body mass index (BMI) [Ratio] 22.3 kg/m2 [facility] 10-08-2023 12:37-0400 Body temperature 97 [degF] [facility] 10-08-2023 12:37-0400 Body weight 57.1 kg [facility] 10-08-2023 12:37-0400 Diastolic blood pressure 90 mm[Hg] [facility] 10-08-2023 12:37-0400 Heart rate 73 /min [facility] 10-08-2023 12:37-0400 Respiratory rate 16 /min [facility] 10-08-2023 12:37-0400 SaO2% (BldA) [Mass fraction] 97 % [facility] 10-08-2023 12:37-0400 Systolic blood pressure 148 mm[Hg] [facility] 09-12-2023 22:37-0500 Body height 160.02 cm [facility] 09-12-2023 22:37-0500 Body mass index (BMI) [Ratio] 22.7 kg/m2 [facility] 09-12-2023 22:37-0500 Body temperature 99.3 [degF] [facility] 09-12-2023 22:37-0500 Body weight 58.2 kg [facility] 09-12-2023 22:37-0500 Diastolic blood pressure 83 mm[Hg] [facility] 09-12-2023 22:37-0500 Heart rate 87 /min [facility] 09-12-2023 22:37-0500 Respiratory rate 14 /min [facility] 09-12-2023 22:37-0500 SaO2% (BldA) [Mass fraction] 100 % [facility] 09-12-2023 22:37-0500 Systolic blood pressure 143 mm[Hg] [facility] 08-28-2023 23:00-0500 Body height 160.02 cm [facility] 08-28-2023 23:00-0500 Body mass index (BMI) [Ratio] 22.7 kg/m2 [facility] 08-28-2023 23:00-0500 Body temperature 98.6 [degF] [facility] 08-28-2023 23:00-0500 Body weight 58.19 kg [facility] 08-28-2023 23:00-0500 Diastolic blood pressure 83 mm[Hg] [facility] 08-28-2023 23:00-0500 Heart rate 77 /min [facility] 08-28-2023 23:00-0500 Respiratory rate 18 /min [facility] 08-28-2023 23:00-0500 SaO2% (BldA) [Mass fraction] 100 % [facility] 08-28-2023 23:00-0500 Systolic blood pressure 117 mm[Hg] [facility] 12-23-2022 22:50-0400 Diastolic blood pressure 70 mm[Hg] [facility] 12-23-2022 22:50-0400 Heart rate 81 /min [facility] 12-23-2022 22:50-0400 Respiratory rate 16 /min [facility] 12-23-2022 22:50-0400 SaO2% (BldA) [Mass fraction] 98 % [facility] 12-23-2022 22:50-0400 Systolic blood pressure 110 mm[Hg] [facility] 12-23-2022 20:16-0400 Body height 167.64 cm [facility] 12-23-2022 20:16-0400 Body mass index (BMI) [Ratio] 19.5 kg/m2 [facility] 12-23-2022 20:16-0400 Body temperature 98.4 [degF] [facility] 12-23-2022 20:16-0400 Body weight 55.11 kg [facility] 10-14-2022 19:44-0400 Diastolic blood pressure 73 mm[Hg] [facility] 10-14-2022 19:44-0400 Heart rate 75 /min [facility] 10-14-2022 19:44-0400 Respiratory rate 18 /min [facility] 10-14-2022 19:44-0400 SaO2% (BldA) [Mass fraction] 100 % [facility] 10-14-2022 19:44-0400 Systolic blood pressure 117 mm[Hg] [facility] 10-14-2022 17:00-0400 Body height 167.64 cm [facility] 10-14-2022 17:00-0400 Body mass index (BMI) [Ratio] 19.2 kg/m2 [facility] 10-14-2022 17:00-0400 Body weight 54.1 kg [facility] 10-14-2022 16:36-0400 Body temperature 98.5 [degF] [facility] Encounters Encounter Date Encounter Type Care Provider Facility Start: 10-08-2023 End: 10-08-2023 Emergency department patient visit No Primary Care Physician Facility:[facility] Start: 10-08-2023 End: 10-08-2023 Emergency department patient visit [facility] Work Phone: Start: 09-13-2023 End: 09-13-2023 Emergency department patient visit No Primary Care Physician Facility:[facility] Start: 09-12-2023 End: 09-12-2023 Emergency department patient visit [facility] Work Phone: Start: 08-29-2023 End: 08-29-2023 Emergency department patient visit No Primary Care Physician Facility:[facility] Start: 08-28-2023 End: 08-29-2023 Emergency department patient visit [facility] Work Phone: Start: 12-23-2022 End: 12-24-2022 Emergency department patient visit No Primary Care Physician Facility:[facility] Start: 12-23-2022 End: 12-23-2022 Emergency department patient visit [facility] Start: 10-14-2022 End: 10-14-2022 Emergency department patient visit No Primary Care Physician Facility:[facility] Start: 10-14-2022 End: 10-14-2022 Emergency department patient visit [facility] Start: 08-13-2018 End: 08-15-2018 Patient encounter procedure [facility] Son Procedures Date Procedure Procedure Detail Performing Clinician Start: 12-23-2022 X-ray of both feet Start: 10-14-2022 CT angiography of ch est with contrast Start: 10-14-2022 Plain chest X-ray Plan of Treatment Date Care Activity Detail Author Start: 10-08-2023 [facility] Start: 09-12-2023 [facility] Start: 08-29-2023 [facility] Patient Education [facility] Work Phone: Patient referral [facility] Work Phone: Payers Date Payer Category Payer Unknown [id number] 2023 Unknown [id number] 2022 Self-pay [id number] Medicaid [id number] Unknown [facility] [id number] Unknown [id number] 2.16.8 [id number] Unknown [id number] [id number] [id number] Unknown [id number] 2.16.8 [id number] Unknown [id number] 2.16.8 [id number] Unknown [id number] [id number] [id number] Social History Date Type Detail Facility Start: 10-14-2022 End: 10-08-2023 Tobacco smoking status NHIS Unknown if ever smoked [facility] Start: 10-25-2020 - [facility] Start: 1970 Sex Assigned At Male [facility] Mental Status Date Assessment Result Facility 10-14-2022 Cognitive function Voice/Name [facility] Work Phone: Discharge summary Note Date & Type Note Facility Discharge summary Note Date/Time August 29, 2023 12:12am [facility] Medical Records Department [address] [place] [address] Emergency Department Summary 08/29/23 MR#: [id number] Acct: [id number] Name: JONATAN VALLECILLO Rep #:[id number] : 1970 52 From: Dustin Gilliam MD PCP: Care Physician,No Primary Status :REG ER Location: ED HPI History of Present Illness Chief Complaint: Dental Informant: patient Narrative Narrative: Patient complains of right lower jaw dental pain. Sounds like he has had some discomfort for a few days. He has an appointment with a dentist on . But it was getting worse today. No nausea vomiting. No fevers. No swelling. He is on no medications for any chronic medical problems. He has no allergies. Nothing really makes this better or worse. PFSH PFSH Medical History no medical history Home Medications oxycodone-acetaminophen 5 mg-325 mg tablet (Percocet) 1 tab PO Q6H PRN pain 3 days #12 tabs 12/23/22 [Rx Last Taken Unknown] naproxen 500 mg tablet (Naprosyn) 500 mg PO BID PRN pain #20 tabs 08/29/23 [Rx Last Taken Unknown] penicillin V potassium 500 mg tablet 500 mg PO 4X/DAY #40 tabs 08/29/23 [Rx Last Taken Unknown] Allergy/AdvReac Type Severity Reaction Status Date / Time No Known Allergies Allergy Verified 08/28/23 23:00 Social History Smoking Status: Never smoker alcohol intake: current ROS ROS ED Constitutional Constitutional ED: Denies chills, fever(s), subjective or sweats Eyes Eyes: Denies blurry vision or change in vision ENT ENT ED: Reports other Details: Right lower dental pain. See HPI. Cardiovascular Cardiovascular: Denies chest pain Gastrointestinal Gastrointestinal: Denies nausea or vomiting Musculoskeletal Musculoskeletal: Denies neck pain Integumentary Denies rash Neurologic Neurologic: Denies headache(s), paresthesias or weakness Hematologic/Lymphatic Hematologic/Lymphatic: Denies easy bleeding, easy bruising or lymphadenopathy Allergic/Immunologic Allergic/Immunologic ED: Denies urticaria EXAM Physical Exam Narrative Exam Narrative: General: Patient awake alert sitting comfortably on bed. No acute distress. Nontoxic. HEENT: No facial swelling. He does have poor dentition with many teeth missing. Lower jaw on the right has premolar molar present. Both of these are tender but mostly the molar. There is some erythema around the gums. Floor the mouth is soft. Tongue is normal motion. Voice is normal. Handling secretions is normal. No sign of Jerel's. There is no tenderness of the tragus. Canals are normal. Neck shows no lymphadenopathy. No stridor. Cardiorespiratory shows easy unlabored breathing with normal pulse and normal saturation 100% on room air showing no hypoxia. Skin shows no external rash or vesicles. Const Vital Signs: 08/28/23 23:00 Temperature 98.6 F Temperature Source Temporal Pulse Rate 77 Respiratory Rate 18 Blood Pressure 117/83 H Blood Pressure Mean 94 Pulse Ox 100 Oxygen Delivery Method Room Air MDM MDM MDM Narrative Medical decision making narrative: Patient will be treated with nonsteroidals antibiotics. He has follow-up arranged. I will still give him a dental resource sheet in case he needs this. Discharge Plan Triage Chief Complaint: Dental ED Provider: Dustin Gilliam Dx/Rx/DC Orders Clinical Impression: Dental abscess Instructions: ED Dental Abscess Prescriptions: New penicillin V potassium 500 mg tablet 500 mg PO 4X/DAY Qty: 40 0RF naproxen [Naprosyn] 500 mg tablet 500 mg PO BID PRN (Reason: pain) Qty: 20 0RF No Action oxycodone-acetaminophen [Percocet] 5-325 mg tablet 1 tab PO Q6H PRN (Reason: pain) 3 Days Qty: 12 0RF Primary Care Provider: Care Physician,No Primary Referrals: Care Physician,No Primary [Primary Care Provider] - Activity Restrictions/Additional Instructions: See your dentist as scheduled on . Disposition Disposition: Home, Self Care What to do if you have Problems For any increased pain, shortness of breath, bleeding, nausea or vomiting, chestpain, or any unexpected problems, contact your Primary Care Provider. Call [facility] ([phone]) or report to the closest Emergency Room. Call 911 if necessary. 08/29/23 0013 <Electronically signed by Dustin Gilliam MD> Cosigner Signature (if applicable): CC: No Primary Care Physician ~ Signed [facility] Work Phone: Evaluation note Note Date & Type Note Facility Evaluation note No assessment information availa ble [facility] Work Phone: Hospital Discharge instructions Note Date & Type Note Facility Hospital Discharge instructions Additional Instructions Please call the clinic for follow-up with your primary care doctor. If you develop new or worsening symptoms come back to the ER. [facility] Work Phone: Hospital Discharge instructions Note Date & Type Note Facility Hospital Discharge instructions Additional Instructions Please wear your walking boot for stabilization for the next 3 to 4 weeks as your exam indicates you have a high ankle sprain and this will take time to heal. Follow-up with podiatry for repeat evaluation and return to the ER should you have any further concerns [facility] Work Phone: Hospital Discharge instructions Note Date & Type Note Facility Hospital Discharge instructions Additional Instructions See your dentist as scheduled on . [facility] Work Phone: Hospital Discharge instructions Note Date & Type Note Facility Hospital Discharge instructions Additional Instructions Please continue the amoxicillin and ibuprofen but add the Percocet for improved pain control. Follow-up with your dentist for repeat evaluation and return to the ER should you have any further concerns [facility] Work Phone: Summary Purpose Family History No Family History Records FoundNo Family History Records Found Advance Directives No Advanced Directives Records Found Advance Directive Response Recorded Date/ Time Advance Directives No July 01, 2016 12:35pm Living Will No October 14, 2022 5:01pm Power of [employer] Office Instructor No October 14 5:01pm Advance Directive Response Recorded Date/ Time Advance Directives No July 01, 2016 12:35pm Living Will No December 23, 2022 9 :48pm Power of [employer] Office Instructor No December 23, 2022 9:48pm Advance Directive Response Recorded Date/ Time Advance Directives No July 01, 2016 11:35am Living Will No August 28 11:58pm Power of [employer] Office Instructor No August 28, 2023 11:58pm Advance Directive Response Recorded Date/ Time Advance Directives No July 01, 2016 11:35am Living Will No September 12 10:52pm Power of [employer] Office Instructor No September 12, 2023 10:52pm Advance Directive Response Recorded Date/ Time Advance Directives No July 01, 2016 12:35pm Living Will No October 08, 2023 1:07pm Power of [employer] Office Instructor No October 07 1:07pm Chief Complaint and Reason for Visit Chief Complaint chest pain, n/t Chief Complaint chest pain, n/t foot pain Chief Complaint dental pain Chief Complaint dental pain dENTAL Chief Complaint dental pain dENTAL EAR Additional Source Comments (unrecognized sect ion and content) No Status Records FoundNo Status Records Found INFORMATION SOURCE (unrecogn ized section and content) DATE CREATED AUTHOR 08/24/2018 [facility] DATE CREATED AUTHOR AUTHOR'S ANJEL ATION 10/15/2023 [facility] Care Teams (unrecognized sec tion and content) Team Status: Active Member Role Status Dates No Primary Care Physician Family Provider Active No Primary Care Physician Primary Care Provider Active Team Status: Inactive Member Role Status Dates No Primary Care Physician Primary Care Provider Active Dr. Rivera Velázquez DO Emergency Provider Active Team Status: Inactive Member Role Status Dates No Primary Care Physician Primary Care Provider Active Dr. Rivera Velázquez DO Attending Provider, Emergency Provider Active Team Status: Inactive Member Role Status Dates No Primary Care Physician Primary Care Provider Active Dr. Isra Carlson DO Emergency Provider Active Team Status: Inactive Member Role Status Dates No Primary Care Physician Primary Care Provider Active Dr. Dustin Gilliam MD Emergency Provider Active Team Status: Inactive Member Role Status Dates No Primary Care Physician Primary Care Provider Active Dr. Dustin Gilliam MD Attending Provider, Emergency Provider Active Team Status: Inactive Member Role Status Dates No Primary Care Physician Primary Care Provider Active Dr. Isra Carlson DO Attending Provider, Emergency Pr ovider Active Team Status: Inactive Member Role Status Dates No Primary Care Physician Primary Care Provider Active Dr. Reynaldo Gee DO Emergency Provider Active Goals (unrecognized section and content) Goals may be documented in a n alternate sectionGoals may be documented in an alternate sectionGoals may be documented in an alternate sectionGoals may be documented in an alternate sectionGoals may be documented in an alternate section FOR RECORDS PERTAINING TO PATIENTS WHO ARE [...] BE BASED ON THE PRIMARY CLINICAL RECORDS. [employer] provides no warranty or guarantee of the accuracy or completeness of information in this document.
[2025-03-07] MEDS: HYDROcodone Bitartrate/Apap 5/325 Tablet PO (22:37)
[2025-03-07 22:45] LABS: Hematocrit 40.2 % (40-54); Hemoglobin 13.6 g/dL (13.0-16.5); Immature Granulocytes Count 0.030 X10^3/uL (0.0-0.0); Mean Corp Hgb Conc 33.8 g/dL (32-36); Mean Corpuscular Volume 88.2 fL (80-94); Mean Platelet Vol. 9.4 fl (6.2-12.0); NRBC Flagged by Analyzer 0 % (0-5); Platelet Count 241 K/mm3 (150-450); RBC Distribution Width CV 12.3 % (11.6-14.6); RBC Distribution Width SD 39.9 fl (35.1-43.9); Red Blood Count 4.56 M/mm3 (4.6-6.2); White Blood Count 8.5 K/mm3 (4.4-11.0)
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
[2025-03-07 23:16] LABS: Anion Gap 14 (5-15); BUN 13 mg/dL (4-19); BUN/Creat Ratio 13.9 RATIO (10-20); Calcium,Total 9.1 mg/dL (7.6-11.0); Carbon Dioxide 21.0 mmol/L (21.0-32.0); Chloride 103 mmol/L (98-108); Estimated Creatinine Clearance 74.73 ml/min (50-250); Glucose 98 mg/dL (70-99); Potassium 4.5 mmol/L (3.3-5.1)
[2025-03-07 23:56] VITALS: BP 122/81; PULSE 71; RESP 18; TEMP 36.6; O2SAT 94
== END 2025-03-07 23:58 | disposition home or self-care (01) ==
PROVIDERS: Emergency Provider Emergency Medicine; Visit Provider Emergency Medicine
DX: S39.012A Strain of muscle, fascia and tendon of lower back, initial encounter (principal); S29.012A Strain of muscle and tendon of back wall of thorax, initial encounter; S20.219A Contusion of unspecified front wall of thorax, initial encounter; S30.1XXA Contusion of abdominal wall, initial encounter; S63.502A Unspecified sprain of left wrist, initial encounter; V23.41XA Electric (assisted) bicycle driver injured in collision with car, pick-up truck or van in traffic accident, initial encounter; Y92.410 Unspecified street and highway as the place of occurrence of the external cause
CPT/HCPCS: 71260; 73110; 74177; 80048; 85025; 93005; 99283; Q9967; A4216